=== PATIENT | male | born 1935 | race Caucasian/White ===

== ENCOUNTER 2023-09-12 13:06 | Inpatient (IN) | payer MEDICARE, BC, SELFPAY ==
[2023-09-11 12:02] VITALS: BP 150/88
[2023-09-11 12:23] LABS: % Basophils 0.3 % (0-2); % Eosinophils 3.6 % (0-6); % Immature Granulocytes 0.4 % (0-0.5); % Lymphocytes 26.3 % (20.5-51.1); % Monocytes 7.6 % (1.7-9.3); % Neutrophils 61.8 % (42.2-75.2); Absolute Eosinophils 0.2 10^3/uL (0-0.7); Absolute Lymphocytes 1.8 10^3/uL (1.2-3.4); Absolute Monocytes 0.5 10^3/uL (0.1-0.6); Absolute Neutrophils 4.1 10^3/uL (1.4-6.5); Hematocrit 43.9 % (39.0-52.0); Hemoglobin 15.7 g/dL (13.0-18.0); Mean Corp Hgb Conc. 35.8 g/dL (33.0-37.0); Mean Corpuscular Hgb 33.6 pg (27.0-31.0); Mean Platelet Volume 9.6 fL (7.4-10.4); Nucleated Red Blood Cells % 0 % (-); Platelet Count 150 10^3/uL (130-400); Red Blood Cell Count 4.67 10^6/uL (4.70-6.10); Red Cell Dist. Width 14.5 % (11.5-14.5); White Blood Cell Count 6.7 10^3/uL (4.8-10.8)
[2023-09-11 13:16] LABS: ALT (SGPT) 22 U/L (0-50); AST (SGOT) 24 U/L (17-59); Albumin 4.5 g/dl (3.5-5.0); Alkaline Phosphatase 81 U/L (38-126); Blood Urea Nitrogen 20 mg/dl (9-20); Calcium 9.9 mg/dl (8.4-10.2); Carbon Dioxide 24 mmol/L (22-30); Chloride 104 mmol/L (98-107); Glucose 183 mg/dl (70-99); Potassium 4.1 mmol/L (3.5-5.1); Sodium 138 mmol/L (135-145); Total Bilirubin 0.9 mg/dl (0.2-1.3); Total Protein 7.5 g/dl (6.3-8.2); eGFR > 60.00
[2023-09-11 13:57] LABS: Urine Albumin Negative (Neg - Trace); Urine Bilirubin Negative (Negative); Urine Character Clear (Clear); Urine Color Yellow; Urine Glucose Negative (Negative); Urine Ketone Negative (Negative); Urine Leukocyte Negative (Negative); Urine Nitrite Negative (Negative); Urine Occult Blood Negative (Negative); Urine Urobilinogen Negative (Neg - 1+)
--- NOTE | 2023-09-11 14:09 | ED.GENMED ---
History of Present Illness
General
Chief Complaint: Change in Mental Status
Source: patient
Exam Limitations: none
Time Seen by Provider: 09/11/23 13:03
Nursing documentation reviewed up to this point in time: agreed with
Travel History
Have you had any contact with someone who has COVID-19?: No
Do you have any symptoms of coronavirus? Fever > 100 degrees, chills, cough, shortness of breath, sore throat, loss of taste or smell, muscle aches, or headache?: No
History of Present Illness
History of Present Illness:
87-year-old male with past medical history of atrial fibrillation currently on Xarelto, CHF hypertension hyperlipidemia presenting to the emergency department today with concerns of initially an episode yesterday where he was slumping to his left
side witnessed by the he does not recall this lasted for few minutes and then resolved this morning he seemed to be confused and had slurred speech this started at least 3 hours prior to arrival to the emergency department. She also seem to be
generally weak but no focal weakness. He was much more confused than usual but does have some memory loss issues at baseline however this is significantly off his baseline.
Past History
Past History
ED Past Medical History: Other (Cardiomyopathy, paroxysmal atrial fibrillation anticoagulation, right eye retinal problem,)
Social History
Tobacco: Former smoker
Alcohol: Occasional
Family History
Family History: Other (Atrial fibrillation)
Review of Systems
Review of Systems
Allergies reviewed?: Yes
All Other Systems: ROS reviewed and negative except as documented in HPI and ROS
Phy Exam
Physical Exam
Physical Exam:
GENERAL: Alert , in no apparent distress
EYE: pupils equal and reactive
NECK: Supple, no significant adenopathy.
ENT: o/p clr, mmm.
CARDIAC: Regular rate and rhythm .
LUNGS: Clear breath sounds bilaterally, no acute respiratory distress, no wheezes/rales/rhonchi
ABDOMEN: Soft, without focal tenderness, no r/g, no cvat
NEUROLOGICAL: Patient is alert having difficulty following directions but eventually will follow directions after repeated instruction. Patient was not sure where he was was not sure the date was not sure of his own birthday not know the president.
According to the he normally knows his answers. 5 out of 5 strength of upper and lower extremities bilaterally , normal sensation bilaterally. No pronator drift.
SKIN: Warm and dry, skin intact.
MUSCULOSKELETAL: No edema, well perfused.
PSYCH: Normal and appropriate interaction.
Course
Orders/Labs/Results
Orders:
Orders
09/11/23 12:15
Complete Blood Count/With Diff Urgent
Comprehensive Metabolic Panel Urgent
09/11/23 12:16
CT Head W/o Iv Contrast Urgent
Reason For Exam: confusion
09/11/23 13:09
UA Reflex to Culture [Urinalysis Reflex To Culture] Urgent
Date Specimen was Collected: 09/11/23
Time Specimen was Collected: 12:08
09/11/23 13:51
EKG [Electrocardiogram (*1)] Urgent
Reason for Study: TIA/Stroke
09/11/23 13:52
EKG- Treatment ONCE
09/11/23 14:00
PT/INR [Prothrombin Time] Urgent
PTT Urgent
09/11/23 14:44
EEG Routine Urgent
Reason for Exam: ? Status epilepticus
Abnormal Lab Results
09/11/23 09/11/23
12:15 14:00
RBC 4.67 L 10^6/uL
(4.70-6.10)
MCH 33.6 H pg
(27.0-31.0)
PT 15.5 H Sec
(11.4-14.6)
APTT 35.5 H Sec
(23.4-35.0)
Glucose 183 H mg/dl
(70-99)
09/11/23 12:15
04/22/24 12:15
Vital Signs
Initial and Last Documented VS:
Initial Vital Signs
Temp Pulse Resp BP Pulse Ox
97.6 F 73 16 150/88 96
09/11/23 12:02 09/11/23 12:02 09/11/23 12:02 09/11/23 12:02 09/11/23 12:02
Last Documented Vital Signs
Temp Pulse Resp BP Pulse Ox
97.6 F 73 16 150/88 96
09/11/23 12:02 09/11/23 12:02 09/11/23 12:02 09/11/23 12:02 09/11/23 12:02
MDM/Problems Addressed
MDM/Problems Addressed:
87-year-old male presenting to the emergency department today with concerns of significant worsening of confusion over the past 4 hours as well as slurred speech. Here no additional focal neurologic deficits does seem to be slurring and was unable
to answer any orientation questions. Vital signs otherwise normal here CT scan without emergent findings labs unremarkable urinalysis normal. Plan to admit for further evaluation
*Critical Care Note
Total Time (30-74mins, 75-104mins- exclusive of procedures): Not Applicable
ED Attending Note
-
Portions of this chart may have been created with voice recognition software.� Occasional wrong word or��sound alike� substitutions may have occurred due to the inherent limitations of voice recognition software.
Discharge Plan
Departure
Patient Disposition: Admit
Date of Disposition: 09/11/23
Time of Disposition: 14:16
Admit to: Telemetry
Admit to doctor: Tariq
Presentation/result/management discussed w/ accepting MD/DO: Hospitalist
Patient with high blood pressure during this ER visit?: No
Condition: Good
Covid-19: Not Applicable
Discharge Problem:
Acute confusion, Slurred speech
Prescriptions:
No Action
multivitamin Tablet
1 tab PO DAILY
furosemide [Lasix] 40 mg Tablet
20 mg PO DAILY
amlodipine 5 mg Tablet
5 mg PO DAILY@0100
famotidine 20 mg Tablet
20 mg PO DAILY@0100
ascorbic acid (vitamin C) [Vitamin C] 500 mg Tablet
500 mg PO DAILY
tamsulosin 0.4 mg Capsule
0.4 mg PO QPM
ferrous sulfate [iron] 325 mg (65 mg iron) Tablet
325 mg PO DAILYPRN PRN (Reason: supplement)
melatonin 5 mg Tablet
5 mg PO DAILY@0100
L.acidophilus-Bifido.longum [Probiotic Pearls] 15 mg (1 billion cell) Capsule,Delayed Release(Dr/Ec)
1 cap PO DAILY@0100
Entresto 97-103 mg Tablet
1 tab PO DAILY@0100
Gemtesa 75 mg Tablet
75 mg PO DAILY
Prevagen
1 tab PO DAILY
Super Q10
100 mg PO DAILY
docosahexaenoic acid-epa
1 tab PO DAILY
Patient Comments:
09/11/2023, 2500 mg, 900 mg EPA, 600 mg DHA.
Neuropathy Vitamin
1 tab PO DAILY
carvedilol 6.25 mg tablet
6.25 mg PO BID
Xarelto 20 mg tablet
20 mg PO QPM
latanoprost 0.005 % Drops
1 drp RIGHT EYE HS
Visine 0.05 % Drops
1 drp BOTH EYES DAILYPRN PRN (Reason: dry eyes)
acetaminophen [Tylenol Arthritis] 650 mg Tablet Extended Release
650 mg PO TID
Lucentis 0.5 mg/0.05 mL Syringe
0 mg INTRAVITREAL Q10W
Patient Comments:
09/11/2023, pt. due for next dose tomorrow (09/12/2023) per spouse.
Entresto 49-51 mg Tablet
1 tab PO DAILY
Referrals:
Lino,Roosevelt E., MD [Family Provider] -
Interventions
Interventions:
*Risk Screen - Suicide Last Done: 09/11/23 12:03
*General Assessment Last Done: 09/11/23 12:03
*Neglect/Abuse Screening Last Done: 09/11/23 12:03
ED- Fall Risk Assessment Last Done: 09/11/23 14:35
ED- Neurological Assessment Last Done: 09/11/23 14:35
ED- Cardiac Assessment Last Done: 09/11/23 14:35
ED Swallowing Screen Last Done: 09/11/23 14:39
Discharge Date and Time
Print Language: PERSIAN
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
[2023-09-11 14:19] LABS: INR 1.24; PT 15.5 Sec (11.4-14.6)
[2023-09-11 14:20] LABS: APTT 35.5 Sec (23.4-35.0)
--- NOTE | 2023-09-11 14:50 | HPS.HSE ---
Addendum entered and electronically signed by Edilia Rios MD 09/11/23 15:42:
Patient seen and examined independently--agree with PA note
GENERAL: well developed, well nourished, male in no apparent distress
HEENT: NC/AT
HEART: irreg irreg
LUNGS : clear to auscultation bilaterally
ABDOM: soft, nontender, nondistended, + bowel sounds
EXT: no cyanosis, clubbing-- 2+ edema bilateral LE--redness of right forearm with tracking up on upper arm
NEUROLOGIC: confused--cannot answer questions
Expressive/Receptive Aphasia with worsening confusion--suspect CVA--OBS until stroke proven--consult neuro, MRI/MRA/PT/OT/Speech/check lipid panel--just had recent echo, no need to repeat--add asa--work up for infection--blood and urine cultures--pt
appears to have cellulitis of right arm--unclear if any contribution--cont ancef
Chronic HFpEF--does not appear to be in an acute exacerbation although does have edema bilaterally (Echo Apr 2023: EF 50-55%)--Continue Entresto--Continue Lasix--Monitor Is&OS and Daily Weights
Permanent Atrial Fibrillation--Hold Xarelto--Continue Coreg for rate control
Essential Hypertension--Continue Amlodipine and Coreg with parameters
Hyperlipidemia--Check Lipid Panel--Add Zetia as patient is intolerant to statins
Diabetes Mellitus, Type II--Patient not currently on meds--Check [id number]--rhc SSI coverage
BPH--Continue Flomax
Hx Aortic Stenosis s/p TAVR
Hx Bladder Cancer s/p BCG
DVT proph: SCDs
Code Status: Full Code
Original Note:
Family Physician
-
Family Physician: Roosevelt Huynh
Chief Complaint
-
Confusion / Slurred Speech
History of Present Illness
Patient is an 87 y/o male with a past medical history of diabetes mellitus, hyperlipidemia, hypertension, permanent atrial fibrillation, cardiomyopathy, heart failure, aortic stenosis (status post transcatheter aortic valve replacement), obstructive
sleep apnea, bilateral lower extremity neuropathy, depression, history of bladder and prostate cancer, and chronic cognitive impairment who presents for a short episode of slumping to his left side yesterday and some confusion with slurred speech 3
hours prior to arrival in the emergency department. Patient is a poor historian due to change in mental status. His reports that yesterday's episode of slumping to the side was short in duration but he was noted to have more confusion than
baseline today. While in the room, patient has trouble following commands and frequently substitutes incorrect words during speech.
Medical History
Past Medical History
Past Medical History: Reports Other
Additional Past Medical History:
Chronic HFpEF
Aortic Stenosis s/p TAVR
Permanent Atrial Fibrillation
Essential Hypertension
Hyperlipidemia
Diabetes Mellitus, Type II
Overactive Bladder
BPH
Bladder Cancer s/p BCG
Past Surgical History: Reports Other
Additional Past Surgical History:
TAVR
Bowel Resection with Colostomy with Reversal
TURBT
Spine Surgery
Social History
Tobacco: Non-smoker
Alcohol: Daily (1-2 glasses of wine nightly)
Family History
Family History: Unable to Obtain
Allergies / Home Medications
Allergies reflects when Allergies were last updated in [facility].
Home Medications with original date entered in [facility]
Allergy/Medication List:
Allergies
Allergy/AdvReac Type Severity Reaction Status Date / Time
simvastatin [From Zocor] Allergy Mild Unknown Verified 03/03/23 11:42
atorvastatin [From Lipitor] Allergy muscle Verified 03/03/23 11:42
weakness
rosuvastatin Allergy Unknown Verified 03/03/23 11:42
Sulfa (Sulfonamide Allergy Rash Verified 03/03/23 11:42
Antibiotics)
Home Medications
L.acidophilus-bif.longum 15 mg (1 billion cell)capsule,delayed release (Probiotic Pearls) 1 cap PO DAILY@0100 Gastrointestinal issue 04/06/22
Prevagen 1 tab PO DAILY Supplement 04/06/22
Super Q10 100 mg PO DAILY Supplement 04/06/22
amlodipine 5 mg tablet 5 mg PO DAILY@0100 Blood pressure 04/06/22
ascorbic acid (vitamin C) 500 mg tablet (Vitamin C) 500 mg PO DAILY Supplement 04/06/22
famotidine 20 mg tablet 20 mg PO DAILY@0100 Gastrointestinal issue 04/06/22
ferrous sulfate 325 mg (65 mg iron) tablet (iron) 325 mg PO DAILYPRN PRN supplement 04/06/22
furosemide 40 mg tablet (Lasix) 20 mg PO DAILY Fluid retention/Swelling 04/06/22
melatonin 5 mg tablet 5 mg PO DAILY@0100 04/06/22
multivitamin 1 tab PO DAILY Supplement 04/06/22
sacubitril 97 mg-valsartan 103 mg tablet (Entresto) 1 tab PO DAILY@0100 Heart Failure 04/06/22
tamsulosin 0.4 mg capsule 0.4 mg PO QPM Urinary Issue 04/06/22
vibegron 75 mg tablet (Gemtesa) 75 mg PO DAILY Overactive bladder 04/06/22
docosahexaenoic acid-epa 1 tab PO DAILY Heart disease/condition 05/09/22
Neuropathy Vitamin 1 tab PO DAILY Supplement 03/03/23
carvedilol 6.25 mg tablet 6.25 mg PO BID Heart Failure 03/03/23
rivaroxaban 20 mg tablet (Xarelto) 20 mg PO QPM Blood Clot Prevention/Tx 03/03/23
acetaminophen 650 mg tablet,extended release 650 mg PO TID 09/11/23
latanoprost 0.005 % eye drops 1 drp RIGHT EYE HS 09/11/23
ranibizumab 0.5 mg/0.05 mL intravitreal syringe (Lucentis) 0 mg intravitreal Q10W 09/11/23
sacubitril 49 mg-valsartan 51 mg tablet (Entresto) 1 tab PO DAILY 09/11/23
tetrahydrozoline 0.05 % eye drops (Visine) 1 drp BOTH EYES DAILYPRN PRN dry eyes 09/11/23
Review of Systems
-
Unable to obtain full review of systems at this time due to: Dementia
Physical Exam
Vital Signs
Vital Signs
Temp Pulse Resp BP Pulse Ox
97.6 F 73 16 150/88 96
09/11/23 12:02 09/11/23 12:02 09/11/23 12:02 09/11/23 12:02 09/11/23 12:02
Physical Exam
General: Comfortable and Conversant
HEENT: Anicteric and Moist mucous membranes
Respiratory: Clear and Non Labored Respirations
Cardiac: S1/S2 and Irregular Rhythm; No Murmur
GI: Soft and Non Tender
Rectal: Deferred by Provider
Musculoskeletal: No Clubbing, No Cyanosis and Other (+1 edema )
Skin: Warm, Dry and Other (Mild erythema with slight increased warmth to touch right upper extremity)
Neuro: Awake, Alert and Other (Appears to move all four extremities appropriately; Doesn't follow all commands therefore difficult to perform full neurologic evaluation; Speech is clear with frequent wrong words)
Psych: Confused and Apparent Dementia
Laboratory Results
-
09/11/23 12:15
09/11/23 12:15
Laboratory Results
PT 15.5 Sec (11.4-14.6) H 09/11/23 14:00
INR 1.24 09/11/23 14:00
APTT 35.5 Sec (23.4-35.0) H 09/11/23 14:00
Total Bilirubin 0.9 mg/dl (0.2-1.3) 09/11/23 12:15
AST 24 U/L (17-59) 09/11/23 12:15
ALT 22 U/L (0-50) 09/11/23 12:15
Alkaline Phosphatase 81 U/L (38-126) 09/11/23 12:15
Data Reviewed
-
Lab Data: Labs Reviewed by me
Impression/Plan
-
Expressive / Receptive Aphasia
-Consult Neurology
-Check Brain MRI with Head/Neck MRA
-Add aspirin
Right Upper Ext Cellulitis
-Add empiric Ancef
Chronic HFpEF
-Echo Apr 2023: EF 50-55%
-Continue Entresto
-Continue Lasix
-Monitor Is&OS and Daily Weights
Permanent Atrial Fibrillation
-Hold Xarelto
-Continue Coreg for rate control
Essential Hypertension
-Continue Amlodipine and Coreg
Hyperlipidemia
-Check Lipid Panel
-Add Zetia as patient is intolerant to statins
Diabetes Mellitus, Type II
-Patient not currently on meds
-Check HgbA1c
BPH
-Continue Flomax
Hx Aortic Stenosis s/p TAVR
Hx Bladder Cancer s/p BCG
DVT proph: SCDs
Code Status: Full Code
[2023-09-11 15:00] VITALS: BMI 33.7
--- NOTE | 2023-09-11 15:46 | EEG.RPT ---
Addendum entered and electronically signed by Brendon Velazquez MD 09/11/23 15:51:
Duration of study 29 minutes.
Original Note:
Electroencephalogram Report
Recording
Date of EE09/11/23
Type of EEG: Routine
Done with Video Recording: Yes
Patient Status: Inpatient
Recording Conditions: Awake and Drowsy
Hyperventilation Performed: No
Photic Stimulation Performed: Yes
Hand Dominance: Right
Report
LESS THAN 1 HOUR EEG INTERPRETATION:
Mildly abnormal EEG with some focal left temporal slowing implying dysfunction in this area. Not specific as to etiology. No seizures or interictal epileptiform discharges seen.
CLINICAL CORRELATION:
Subtle left temporal lobe slowing at T5 may be due to structural lesion in this area, not specific as to etiology but can be caused by ischemic stroke to the area. No seizures or interictal epileptiform discharges seen.
Clinical correlation is advised.
METHODS:
A 21 channel digitized electroencephalogram (EEG) was performed using the 10/20 international system of electrode placement and one-lead of ECG recorded.
ELECTROENCEPHALOGRAPHER IMPRESSION(S):
Quality of study
Good
Background
In the awake state there is mixed medium amplitude background of predominantly theta and alpha frequencies.
Normal posterior dominant rhythm of 8 to 9 Hz is seen which attenuates with eye opening.
Very subtle T5 focal slowing is seen on the left hemisphere
Sleep
Drowsiness present
Photic Stimulation
No activation
ECG
Normal sinus rhythm
[2023-09-11 16:03] LABS: Total Cholesterol 195 mg/dl (50-199); Triglyceride 165 mg/dl (10-149); Very Low Density Lipoprotein 33 mg/dl (0-30)
[2023-09-11 16:04] LABS: HDL Cholesterol 39 mg/dl; LDL Cholesterol, Calculated 123 mg/dl
[2023-09-11 16:46] LABS: TSH Reflex To Free T4 1.81 uIU/ml (0.47-4.68)
[2023-09-11 16:50] LABS: Ferritin 86.2 ng/ml (17.9-464.0)
[2023-09-11 17:00] VITALS: BP 146/95; BMI 33.3
[2023-09-11 17:19] LABS: Glucose - Point of Care 123 mg/dl (70-99)
[2023-09-11] MEDS: NOVOLOG FLEXPEN-LOW RESISTANCE SC (17:20)
[2023-09-11 17:21] LABS: Folate > 20.0 ng/ml (2.76-20); Vitamin B12 755 pg/ml (239-931)
[2023-09-11 18:04] VITALS: BMI 32.4
[2023-09-11] MEDS: ANCEF 10 IV (18:09)
[2023-09-11] MEDS: FLOMAX PO (18:42)
[2023-09-11 19:00] VITALS: BP 161/99
--- NOTE | 2023-09-11 19:43 | PTCARENOTE ---
1715 Received patient from ED AAOx1-2. [facility]
--- NOTE | 2023-09-11 19:44 | PTCARENOTE ---
1715 Received patient from ED AAOx2. [facility]-4. Pt oriented to room. Bed alarm in place. Made patient comfortable. 1914 Swallowing test re done. Pt passed swallowing eval. Made paitent comfortable. Cont to assess patient status.
[2023-09-11] MEDS: ZETIA 10 MG PO (20:02)
[2023-09-11] MEDS: COREG 6.25 MG PO (20:02)
[2023-09-11 22:02] LABS: Glucose - Point of Care 130 mg/dl (70-99)
[2023-09-11 23:55] VITALS: BP 159/60
[2023-09-12 01:15] VITALS: BP 153/92
[2023-09-12] MEDS: ANCEF 10 IV ×3 (01:28→17:54)
[2023-09-12] MEDS: PEPCID 20 MG PO (01:28)
[2023-09-12] MEDS: ENTRESTO 97 MG/103 MG 1 TAB PO (01:28)
[2023-09-12] MEDS: NORVASC 5 MG PO (01:28)
[2023-09-12 06:00] VITALS: BMI 32.4
[2023-09-12 07:04] LABS: HDL Cholesterol 37 mg/dl; LDL Cholesterol, Calculated 124 mg/dl; Total Cholesterol 192 mg/dl (50-199); Triglyceride 158 mg/dl (10-149); Very Low Density Lipoprotein 31 mg/dl (0-30)
[2023-09-12 07:45] LABS: TSH Reflex To Free T4 1.53 uIU/ml (0.47-4.68)
--- NOTE | 2023-09-12 08:00 | W.PN.NEURO.1 ---
Addendum entered and electronically signed by Brendon Velazquez MD 09/12/23 12:47:
I saw and evaluate the patient I reviewed the note by Darcy Garber agree with the findings the following comments:
87-year-old male with a past medical history of peripheral neuropathy CHF, hypertension, obstructive sleep apnea and atrial fibrillation on Xarelto presented to hospital with speech abnormality and confusion and upon evaluation yesterday had a
Wernicke's/fluent aphasia seen in the ED.
No acute overnight events and the patient's language does seem to be improving although not normalized, denies any headache or weakness or new complaints.
MRI brain shows infarcts in the left MCA territory notably the left temporal frontal and parietal lobes all within the left MCA territory, no infarcts appreciated on the right.
No significant intracranial stenosis or occlusion, some motion artifact at the left cervical internal carotid artery but appears less than 50% stenosis.
Assessment: New ischemic stroke causing Wernicke's aphasia which is improving likely. Ischemic stroke territory is all within the left MCA territory. Etiology could be cardioembolic given history of atrial fibrillation versus atheroembolic from
the aorta or from a nonhemodynamically significant plaque in the left carotid artery. Modifiable risk factors include high LDL patient not able to tolerate statins, type 2 diabetes, obstructive sleep apnea and age.
Given the infarct is in the left MCA territory only in the territory of the left carotid artery would take a closer look at the carotid artery with ultrasound. Stroke can still occur from a nonhemodynamically significant stenosis from carotid
plaque. Fair chance that the stroke is from atheroembolic etiology rather than cardioembolic stroke occurring despite Xarelto use.
Recommendations
-Check carotid ultrasound
-Continue to hold Xarelto
-Continue asprin
-Added Zetia for improving LDL he has been unable to tolerate several statins, would pursue consideration for Repatha in the outpatient setting with cardiology
-Speech therapy
-Counseled on recovery from stroke, expect some language deficits and aphasia but he is showing improvement already which is a good sign
-Goal normotension
-NIH and Neurologic checks
Original Note:
Documented by User: Darcy Carrera NP 09/12/23 11:40
Today's Communication / Plan
-
.
Neuro Assessment/Plan
Assessment
This is an 87-year-old male with a PMH of Afib (Xarelto), HTN, CHF, peripheral neuropathy, YENNY (cpap), previous bladder and prostate cancer who presented to on 09/11/23 with report of confusion, speech abnormality, and a starring spell
precipitating these changes on 09/10/23. He was not a candidate for TNK/IAT due to Xarelto in the last 24 hours and outside of time window.
-MRI brain 09/12/23: There are multiple scattered small foci of acute to subacute infarction in the left hemisphere, in the distribution of the left MCA, as described above. In the right paramedian parietal lobe, there is also a 2 mm punctate focus
of acute to subacute infarction. Moderate diffuse atrophy. Moderate leukomalacia, predominantly periventricular.
-EEG 09/11/23: Subtle left temporal lobe slowing at T5 may be due to structural lesion in this area, not specific as to etiology but can be caused by ischemic stroke to the area. No seizures or interictal epileptiform discharges seen.
I. Acute to subacute scattered ischemic infarcts throughout the L MCA territory in addition to a right parietal lobe punctate infarct. Etiology likely embolic.
II. Likely mild cognitive impairment vs mild dementia at baseline.
Plan
-MRA head/neck pending.
-Hold Xarelto. Continue aspirin 81mg daily for now.
-Goal normotension.
-LDL goal <70. LDL is 124. Patient is intolerant to statins, Zetia 10mg daily initiated.
-Goal normoglycemia, hbA1c is 6.5.
-NIHSS and neurological checks per unit guidelines.
-Provide patient/family with a stroke education packet.
-PT/OT/ST evaluations.
-DVT prophylaxis.
-Will follow.
Subjective/Objective
Subjective Data
Date of Service: September 12, 2023
No acute events overnight. Patient endorses feeling confused but improved from yesterday. He denies any headache, dizziness, vision changes, speech/swallow difficulty, numbness, nausea, weakness, chest pain, palpitations, and shortness of breath.
Objective Data
Vital Signs
Temp Pulse Resp BP Pulse Ox
97.8 F 81 18 161/97 96
09/11/23 23:55 09/12/23 01:28 09/11/23 23:55 09/12/23 01:28 09/11/23 23:55
Lab Results
09/11/23 12:15
09/11/23 12:15
PT 15.5 Sec (11.4-14.6) H 09/11/23 14:00
INR 1.24 09/11/23 14:00
APTT 35.5 Sec (23.4-35.0) H 09/11/23 14:00
Sodium 138 mmol/L (135-145) 09/11/23 12:15
Potassium 4.1 mmol/L (3.5-5.1) 09/11/23 12:15
BUN 20 mg/dl (9-20) 09/11/23 12:15
Glucose 183 mg/dl (70-99) H 09/11/23 12:15
Calcium 9.9 mg/dl (8.4-10.2) 09/11/23 12:15
LDL Cholesterol, Calc 124 mg/dl 09/12/23 06:00
Vitamin B12 755 pg/ml (239-931) 09/11/23 12:15
Patient Allergies
atorvastatin [From Lipitor] Allergy (Verified 03/03/23 11:42)
muscle weakness
rosuvastatin Allergy (Verified 09/11/23 16:49)
muscle cramps
simvastatin [From Zocor] Allergy (Verified 09/11/23 16:49)
leg cramps
Sulfa (Sulfonamide Antibiotics) Allergy (Verified 03/03/23 11:42)
Rash
LDL Level: >70, statin contraindicated (statin intolerant, zetia ordered)
Review of Systems
-
History Source: Patient
EENT: Negative Blurry Vision, Decreased Vision or Swallowing Difficulty
Respiratory: Negative Cough or Trouble Breathing
Cardiac: Negative Chest Pain or Palpitations
Abdomen/GI: Negative Nausea
Neuro: Negative Dizzy, Headache, Weakness, Numbness, Ataxia or Speech Problem
Physical Exam
-
General: No Apparent Distress
Eyes: No Ptosis and PERRLA
HEENT: Normocephalic and Atraumatic
Neck: Full Range of Motion
Respiratory: No Dyspnea
GI: Non-distended
Extremities: No Clubbing, No Cyanosis and No Edema
Psych: Confused; Negative Intact Judgement/Insight
Extended Neurological Exam
Mood & Affect: Anxious
Attention Span & Concentration: Awake, Alert, Interactive and Mild Difficulty with 2 Step Request
Memory: Reduced (Oriented to self and place, not month/year/situation)
Tremor: Hand Tremor Absent and Head Tremor Absent
Involuntary Movement: None
Speech: Quality Unremarkable and Receptive Aphasia
Cranial Nerve II: Left Eye: Pupillary Reactivity Unremarkable, Pupillary Size Unremarkable and Visual Santillan Intact
Cranial Nerve II: Right Eye: Pupillary Reactivity Unremarkable, Pupillary Size Unremarkable and Visual Santillan Intact
Cranial Nerves III, IV, : Extraocular Movement: Extraocular Movement Full in all Directions
Cranial Nerve VII: Facial Symmetry: Normal Facial Symmetry
Cranial Nerve VIII: Hearing: Grossly Reduced (wearing hearing aids)
Cranial Nerves IX, X: Palate Movement: Palate Elevation Symmetric
Cranial Nerve XI: Shoulder Shrug: Unremarkable
Cranial Nerve XII: Tongue Protusion: Midline
Muscle Strength, Overall: Full Throughout
Muscle Bulk & Tone: Bulk Unremarkable and Tone Unremarkable
Pronator Drift: No Drift in Upper Extremities and No Drift in Lower Extremities
Touch Sensation: Double Simultaneous Stimulation Unremarkable
Coordination: Fyttel-hdar-elrukw Testing Unremarkable
Babinski Sign: Absent Bilaterally
Modified [place] Score (MRS)
-
Modified Joselito Scale (mRS): Moderate disability. Requires some help, able to walk unassisted.
Score: 3
Data Reviewed
-
CT Head: Report Reviewed and Image Reviewed
MRI Head: Report Reviewed and Image Reviewed
MRA Head: Pending
MRA Neck: Pending
EEG: Report Reviewed
Labs: Report Reviewed
Lipid Profile: Report Reviewed
HgbA1C: Report Reviewed
Reviewed with: Physician and Patient
Medications
-
Active Medications
Generic Name Dose Route Start Last Admin
Trade Name Freq PRN Reason Stop Dose Admin
Acetaminophen 650 mg 09/11/23 16:47
Acetaminophen 325 Mg Tablet PO 10/09/23 16:46
Q4HPRN PRN
mild pain/ fever>100.5F
Amlodipine Besylate 5 mg 09/12/23 01:00 09/12/23 01:28
Amlodipine 5 Mg Tablet PO 10/10/23 00:59 5 mg
DAILY@0100 MITCH Administration
Aspirin 81 mg 09/12/23 08:00
Aspirin 81 Mg (Enteric Coated) Tablet PO 10/10/23 07:59
DAILY MITCH
Carvedilol 6.25 mg 09/11/23 20:00 09/11/23 20:02
Carvedilol 6.25 Mg Tablet PO 10/09/23 19:59 6.25 mg
BID MITCH Administration
Dextrose 12.5 grams 09/11/23 16:47
Dextrose 50% (0.5 Grams/Ml) 50 Ml Syringe IV 10/09/23 16:46
[id number] PRN
hypoglycemia
Protocol
Ezetimibe 10 mg 09/11/23 22:00 09/11/23 20:02
Ezetimibe (Zetia) 10 Mg Tablet PO 10/09/23 21:59 10 mg
HS MITCH Administration
Famotidine 20 mg 09/12/23 01:00 09/12/23 01:28
Famotidine 20 Mg Tablet PO 10/10/23 00:59 20 mg
DAILY@0100 MITCH Administration
Furosemide 20 mg 09/12/23 08:00
Furosemide 20 Mg Tablet PO 10/10/23 07:59
DAILY MITCH
Glucagon 1 mg 09/11/23 16:47
Glucagon 1 Mg Vial IM 10/09/23 16:46
PRN PRN
hypoglycemia
Protocol
Cefazolin Sodium 2 grams in 10 mls @ 120 mls/hr 09/11/23 18:00 09/12/23 01:28
Ancef IV 10 mls
Q8H MITCH Administration
Insulin Aspart 0 units 09/11/23 16:47 09/11/23 17:20
Insulin Aspart Low Resistance 300 Units/3 Ml Pen.Injctr SC 10/09/23 16:46 Not Given
AC MITCH
Protocol
Sacubitril/Valsartan 1 tab 09/12/23 08:00
Sacubitril 49 Mg/Valsartan 51 Mg (Entresto) Tab PO 10/10/23 07:59
DAILY MITCH
Sacubitril/Valsartan 1 tab 09/12/23 01:00 09/12/23 01:28
Sacubitril 97 Mg/Valsartan 103 Mg (Entresto) Tab PO 10/10/23 00:59 1 tab
DAILY@0100 MITCH Administration
Sodium Chloride 0 flush 09/11/23 17:00
Sodium Chloride 0.9% (Flush) Syringe IV 10/09/23 16:59
PER PROTOCOL MITCH
Tamsulosin HCl 0.4 mg 09/11/23 18:00 09/11/23 18:42
Tamsulosin 0.4 Mg Capsule PO 10/09/23 17:59 Not Given
QPM MITCH
Tolterodine Tartrate 4 mg 09/12/23 08:00
Tolterodine 4 Mg Extended Release Capsule PO 10/10/23 07:59
DAILY MITCH
Home Medications
�Medication �Instructions �Recorded
L.acidophilus-bif.longum 15 mg (1 1 cap PO DAILY@9904/06/22
billion cell)capsule,delayed Gastrointestinal issue
release (Probiotic Pearls)
Prevagen 1 tab PO DAILY Supplement 04/06/22
Super Q10 100 mg PO DAILY Supplement 04/06/22
amlodipine 5 mg tablet 5 mg PO DAILY@010 Blood pressure 04/06/22
ascorbic acid (vitamin C) 500 mg 500 mg PO DAILY Supplement 04/06/22
tablet (Vitamin C)
famotidine 20 mg tablet 20 mg PO DAILY@9904/06/22
Gastrointestinal issue
ferrous sulfate 325 mg (65 mg 325 mg PO DAILYPRN PRN supplement 04/06/22
iron) tablet (iron)
furosemide 40 mg tablet (Lasix) 20 mg PO DAILY Fluid 04/06/22
retention/Swelling
melatonin 5 mg tablet 5 mg PO DAILY@9904/06/22
multivitamin 1 tab PO DAILY Supplement 04/06/22
sacubitril 97 mg-valsartan 103 mg 1 tab PO DAILY@010 Heart Failure 04/06/22
tablet (Entresto)
tamsulosin 0.4 mg capsule 0.4 mg PO QPM Urinary Issue 04/06/22
vibegron 75 mg tablet (Gemtesa) 75 mg PO DAILY Overactive bladder 04/06/22
docosahexaenoic acid-epa 1 tab PO DAILY Heart 05/09/22
disease/condition
Neuropathy Vitamin 1 tab PO DAILY Supplement 03/03/23
carvedilol 6.25 mg tablet 6.25 mg PO BID Heart Failure 03/03/23
rivaroxaban 20 mg tablet (Xarelto) 20 mg PO QPM Blood Clot 03/03/23
Prevention/Tx
acetaminophen 650 mg 650 mg PO TID 09/11/23
tablet,extended release
latanoprost 0.005 % eye drops 1 drp RIGHT EYE HS 09/11/23
ranibizumab 0.5 mg/0.05 mL 0 mg intravitreal Q10W 09/11/23
intravitreal syringe (Lucentis)
sacubitril 49 mg-valsartan 51 mg 1 tab PO DAILY 09/11/23
tablet (Entresto)
tetrahydrozoline 0.05 % eye drops 1 drp BOTH EYES DAILYPRN PRN dry 09/11/23
(Visine) eyes
NIH Stroke Score
Subsequent NIH Scale
Date of Subsequent NIH Scale: 09/12/23
Time of Subsequent NIH Scale: 09:30
NIH Stroke Score
Level of Consciousness: 0 - Alert
LOC Questions: 2-Neither correct
LOC Commands: 0-Performs both correctly
Best Horizontal Gaze: 0-Normal
Visual Santillan: 0=Normal, no visual loss
Facial Palsy: 0=Normal, symmetrical
Motor - Right Arm: 0=No drift 10 seconds
Motor - Left Arm: 0=No drift 10 seconds
Motor - Right Le-No drift 5 seconds
Motor - Left Le-No drift 5 seconds
Limb Ataxia: 0-Absent
Sensation: 0-Normal
Best Language: 1-Mild aphasia
Dysarthria: 0-Normal
Extinction and Inattention: 0-No abnormality
Total Score:: 3
Modified Joselito (mRS) Score
Modified [place] Scale (mRS): Moderate disability. Requires some help, able to walk unassisted.
Score: 3

Documented by User: Brendon Velazquez MD 09/12/23 12:42
Modified Joselito Score (MRS)
-
Score: 3
NIH Stroke Score
NIH Stroke Score
Total Score:: 3
Modified Joselito (mRS) Score
Score: 3
[2023-09-12 08:04] LABS: Vitamin B12 806 pg/ml (239-931)
[2023-09-12 08:17] LABS: Glucose - Point of Care 122 mg/dl (70-99)
[2023-09-12 08:21] VITALS: BP 155/95
[2023-09-12 08:32] LABS: Glycohemoglobin (HgbA1c) 6.5 % (4.0-5.6)
[2023-09-12] MEDS: ASPIR LOW (ENTERIC COATED) 81 MG PO (09:20)
[2023-09-12] MEDS: LASIX 20 MG PO (09:20)
[2023-09-12] MEDS: NOVOLOG FLEXPEN-LOW RESISTANCE SC ×3 (09:20→17:54)
[2023-09-12] MEDS: ENTRESTO 49 MG/51 MG 1 TAB PO (09:21)
[2023-09-12] MEDS: DETROL LA 4 MG PO (09:21)
[2023-09-12] MEDS: COREG 6.25 MG PO ×2 (09:21→20:53)
[2023-09-12] MEDS: FLUSH (NSS) 2 FLUSH IV ×2 (09:22→17:54)
[2023-09-12 10:02] VITALS: BMI 32.4
--- NOTE | 2023-09-12 10:15 | PTOTSP ---
ST Evaluation
Oropharyngeal function appears intact at the bedside. Cog-linguistic deficits; memory impairment ?baseline pending MRI
Pt received awake/alert sitting upright in bed with AM Meal of regular solids/thin liquids. Self fed regular solids demo grossly functional mastication and bolus was orally cleared. Thin liquids by cup and straw sip swallow appears timely. No overt
s/sx of aspiration observed.
Recommend
1. Continue regular solids/thin liquids
2. Standard aspiration precautions and tray set up as needed
3. Meds per pt preference and RN discretion
4. BAND SAW MARKER following; further cog-linguistic testing pending MRI
[2023-09-12 11:56] VITALS: BP 152/98
[2023-09-12 12:28] LABS: Glucose - Point of Care 195 mg/dl (70-99)
--- NOTE | 2023-09-12 13:02 | W.PN.HOSP.TC ---
Today's Communication/Plan
-
echo
carotid US
PT/OT
d/c planning--likely will need SNF
Assessment / Plan
Assessment / Plan
pt is an 87 year old male
acute CVA with Expressive/Receptive Aphasia with worsening confusion--apprec neuro, MRI with infarcts in the left MCA territory notably the left temporal frontal and parietal lobes all within the left MCA territory, no infarcts appreciated on the
right--MRA COW within normal limits--await PT/OT--add asa--now with acute CVA, will repeat echo--pt appears to have cellulitis of right arm---cont ancef
Chronic HFpEF--does not appear to be in an acute exacerbation although does have edema bilaterally (Echo Apr 2023: EF 50-55%)--Continue Entresto--Continue Lasix--Monitor Is&OS and Daily Weights
Permanent Atrial Fibrillation--Hold Xarelto--Continue Coreg for rate control
Essential Hypertension--Continue Amlodipine and Coreg with parameters
Hyperlipidemia--Check Lipid Panel--Add Zetia as patient is intolerant to statins
Diabetes Mellitus, Type II--Patient not currently on meds--Check MewS2s--vwv SSI coverage
BPH--Continue Flomax
Hx Aortic Stenosis s/p TAVR
Hx Bladder Cancer s/p BCG
DVT proph: SCDs
Code Status: Full Code
Anticipated Discharge: 24 - 48 hours
Subjective/Interval History
-
Date of Service: September 12, 2023
pt wants to go home, can't remember having the MRIs this AM--nursing reports very unsteady on his feet
Objective Data
-
Vital Signs:
max temp for 24 hours
09/11/23
19:00
Temp 98.1 F
Vital Signs
Temp Pulse Resp BP Pulse Ox
98.1 F 82 18 152/98 100
09/12/23 11:56 09/12/23 11:56 09/12/23 11:56 09/12/23 11:56 09/12/23 11:56
I&O
09/11/23 09/12/23 09/13/23
06:59 06:59 06:59
Output Total 1200 / 1200 150 / 150
Balance -1200 / -1200 -150 / -150
Review of Systems
-
All other systems: Reviewed and negative
Physical Exam
-
General: Well Developed, Well Nourished and No Apparent Distress
HEENT: Normocephalic and Atraumatic
Respiratory: Clear to Auscultation; Negative Wheezes or Rhonchi
Cardiac: Irregular Rhythm
GI: Soft, Nontender, Nondistended and Normal Bowel Sounds
Musculoskeletal: No Clubbing, No Cyanosis and No Edema
Skin: Other (redness to right arm improved)
Neuro: Awake
[2023-09-12 16:11] VITALS: BP 156/98
--- NOTE | 2023-09-12 16:18 | CM ---
Patient seen bedside.
IA completed with patient and spouse.
Patient TE-MOAK.
patient lives with spouse in a 2 story home with 2 steps to enter thru the garage.
patient has a stair glide to the second floor.
patient ambulates with a RW.
patient does not drive.
Independent prior to admission.
Patient has had [facility] in the past, may be [facility].
Has not been in skilled rehab in the past.
Patient off the floor for testing today, MRI and US.
PT/OT evals pending.
Explained to spouse after evals are completed and CM receives their recommendations for Acute Rehab, Skilled rehab or HC, CM would reach out to get options for post hospital stay.
PCP: Dr Huynh
Pharmacy: [facility].
Plan: TBD based on PT/OT recommendations.
[2023-09-12 16:54] LABS: Glucose - Point of Care 125 mg/dl (70-99)
[2023-09-12] MEDS: FLOMAX 0.400000000000000022 MG PO (17:55)
[2023-09-12 19:00] VITALS: BP 151/87
[2023-09-12] MEDS: ZETIA 10 MG PO (20:53)
[2023-09-12] MEDS: XALATAN OPHTHALMIC SOLUTION 1 DROP RIGHT EYE (20:53)
[2023-09-12 21:32] LABS: Glucose - Point of Care 153 mg/dl (70-99)
[2023-09-12 23:39] VITALS: BP 124/80
[2023-09-13] VITALS (9 sets, daily range): BP systolic 124–172; BP diastolic 76–108; PULSE 72–121; O2SAT 98; BMI 32.4
[2023-09-13] MEDS: ENTRESTO 97 MG/103 MG PO (01:00)
[2023-09-13] MEDS: NORVASC PO (01:00)
[2023-09-13] MEDS: PEPCID PO (01:00)
[2023-09-13] MEDS: ANCEF IV (01:00)
--- NOTE | 2023-09-13 05:08 | PTCARENOTE ---
Pt aaox2 confused. Pt on bed alarm. Pt trying to get up without help,when trying to help pt get angry on staff to leave him alone. NIH-4.PRINT BINDING AND FINISHING WORKER educational sign language interpreter made aware of pt behavior & confusion, refusing 1am medications. CHRISTIAN EDUCATION DIRECTOR spoke to pt at this time. Pt
wants to sleep. Pt was provided with all emotional & psychological support.Plan of care continued as ordered.
[2023-09-13 07:43] LABS: Hematocrit 45.8 % (39.0-52.0); Hemoglobin 16.6 g/dL (13.0-18.0); Mean Corp Hgb Conc. 36.2 g/dL (33.0-37.0); Mean Corpuscular Hgb 34.2 pg (27.0-31.0); Mean Corpuscular Volume 94.4 fL (80.0-94.0); Mean Platelet Volume 9.8 fL (7.4-10.4); Platelet Count 156 10^3/uL (130-400); Red Blood Cell Count 4.85 10^6/uL (4.70-6.10); Red Cell Dist. Width 14.2 % (11.5-14.5); White Blood Cell Count 8.2 10^3/uL (4.8-10.8)
[2023-09-13 08:10] LABS: Glucose - Point of Care 122 mg/dl (70-99)
--- NOTE | 2023-09-13 08:22 | W.PN.NEURO.1 ---
Addendum entered and electronically signed by Brendon Velazquez MD 09/13/23 13:58:
I saw and evaluated the patient I reviewed the note by Darcy Garber agree with the findings the following comments:
87-year-old male with a past no history of atrial fibrillation on Xarelto, peripheral neuropathy, hypertension presenting the hospital with Wernicke's aphasia.
Patient had some worsening during my examination showing worsened aphasia right facial droop and minor right arm drift with him which triggered urgent CT head noncontrast which showed expected late acute ischemic infarct without hemorrhage. Likely
patient return to his previous examination on reevaluation mostly significant for some mild comprehension of deficits from mild Wernicke's type aphasia, his right facial droop and right arm weakness improved.
MRI brain shows acute infarcts mostly in the left temporal lobe but also in the left frontal and parietal lobes all within the left MCA territory. MRA neck somewhat motion degraded but appears less than 50% stenosis of the left carotid.
Carotid ultrasound shows less than 50% stenosis of the carotids bilaterally.
Assessment: Suspicion for atheroembolic rather than cardioembolic stroke and Xarelto failure given high LDL, minor carotid plaque seen, and the stroke is all within the territory of the left carotid artery. Less than 50% stenosis with mean medical
management.
Discussed with patient and his that patient's with recent stroke are sometimes seen to have minor fluctuations as a result of the stroke itself, sometimes can be seen with blood pressure fluctuations fatigue and dehydration as well.
Recommendations
-Discussed my recommendation for SNF or subacute rehab with patient and his
-Resume Xarelto tonight
-Would place on aspirin 81 mg daily for 3 weeks then stop for additional protection against atheroembolic stroke
-Srarted Zetia to help decrease LDL
-Speech, physical occupational therapies
-Goal normotension
Original Note:
Documented by User: Darcy Carrera NP 09/13/23 11:15
Today's Communication / Plan
-
.
Neuro Assessment/Plan
Assessment
This is an 87-year-old male with a PMH of Afib (Xarelto), HTN, CHF, peripheral neuropathy, YENNY (cpap), previous bladder and prostate cancer who presented to on 09/11/23 with report of confusion, speech abnormality, and a starring spell
precipitating these changes on 09/10/23. He was not a candidate for TNK/IAT due to Xarelto in the last 24 hours and outside of time window.
-MRI brain 09/12/23: There are multiple scattered small foci of acute to subacute infarction in the left hemisphere, in the distribution of the left MCA, as described above. In the right paramedian parietal lobe, there is also a 2 mm punctate focus
of acute to subacute infarction. Moderate diffuse atrophy. Moderate leukomalacia, predominantly periventricular.
-MRA head/neck 09/12/23: There is motion artifact involving the proximal left internal and external carotid arteries. However, no convincing evidence for a focal greater than 50% diameter reduction, with no evidence for hemodynamically significant
stenosis. No significant narrowing of the right carotid bulb or proximal right internal carotid artery. Normal appearance of codominant vertebral arteries. Normal appearance of the basilar artery.
-Carotid ultrasound 09/12/23: Minimal carotid bulb plaque on each side, measurements suggestive of less than 50% stenosis on each side.
-EEG 09/11/23: Subtle left temporal lobe slowing at T5 may be due to structural lesion in this area, not specific as to etiology but can be caused by ischemic stroke to the area. No seizures or interictal epileptiform discharges seen.
-CT Head 09/13/23: There are no acute intracranial abnormalities when compared with the prior study. The multiple punctate areas of cortical and subcortical subacute nonhemorrhagic infarction seen on the 09/12/2023 MRI examination are not evident on
this CT study. There is moderate diffuse cortical atrophy with moderate nonspecific white matter changes as described above.
I. Acute to subacute scattered ischemic infarcts throughout the L MCA territory in addition to a right parietal lobe punctate infarct. Etiology likely embolic.
II. Worsening of symptoms this morning likely a fluctuation in the existing stroke symptoms.
III. Likely mild cognitive impairment vs mild dementia at baseline.
Plan
-Resume home Xarelto 20mg daily this evening (09/13/23). Continue aspirin 81mg daily for three weeks then discontinue.
-Goal normotension. Monitor on telemetry.
-LDL goal <70. LDL is 124. Patient is intolerant to statins, Zetia 10mg daily initiated.
-Goal normoglycemia, hbA1c is 6.5.
-NIHSS and neurological checks per unit guidelines.
-Provide patient/family with a stroke education packet.
-PT/OT/ST evaluations.
-DVT prophylaxis.
-Will follow.
Subjective/Objective
Subjective Data
Date of Service: September 13, 2023
No acute events overnight. This morning, patient was noted to have improved speech but on Neurology evaluation around 0945 speech was severely dysarthric with worsened aphasia. RUE continues to be weak. He denies any headache, dizziness, vision
changes, swallowing difficulty, numbness, chest pain, palpitations, and shortness of breath. PT reports bilateral foot drop/abnormal gait but patient reports this is his chronic gait. CT head was obtained and is negative for any acute findings.
Objective Data
Vital Signs
Temp Pulse Resp BP Pulse Ox
98.4 F 83 18 153/95 96
09/13/23 08:12 09/13/23 08:12 09/13/23 08:12 09/13/23 08:12 09/13/23 08:12
Lab Results
09/13/23 07:36
PT 15.5 Sec (11.4-14.6) H 09/11/23 14:00
INR 1.24 09/11/23 14:00
APTT 35.5 Sec (23.4-35.0) H 09/11/23 14:00
Sodium 138 mmol/L (135-145) 09/11/23 12:15
Potassium 4.1 mmol/L (3.5-5.1) 09/11/23 12:15
BUN 20 mg/dl (9-20) 09/11/23 12:15
Glucose 183 mg/dl (70-99) H 09/11/23 12:15
Calcium 9.9 mg/dl (8.4-10.2) 09/11/23 12:15
LDL Cholesterol, Calc 124 mg/dl 09/12/23 06:00
Vitamin B12 806 pg/ml (239-931) 09/12/23 06:00
Patient Allergies
atorvastatin [From Lipitor] Allergy (Verified 03/03/23 11:42)
muscle weakness
rosuvastatin Allergy (Verified 09/11/23 16:49)
muscle cramps
simvastatin [From Zocor] Allergy (Verified 09/11/23 16:49)
leg cramps
Sulfa (Sulfonamide Antibiotics) Allergy (Verified 03/03/23 11:42)
Rash
LDL Level: >70, statin contraindicated (zetia ordered)
Review of Systems
-
History Source: Patient
EENT: Negative Blurry Vision, Decreased Vision or Swallowing Difficulty
Respiratory: Negative Cough or Trouble Breathing
Cardiac: Negative Chest Pain or Palpitations
Abdomen/GI: Negative Nausea
Neuro: Weakness and Speech Problem; Negative Dizzy, Headache, Numbness or Ataxia
Physical Exam
-
General: No Apparent Distress
Eyes: No Ptosis and PERRLA
HEENT: Normocephalic and Atraumatic
Neck: Full Range of Motion
Respiratory: No Dyspnea
GI: Non-distended
Extremities: No Clubbing, No Cyanosis and No Edema
Psych: Anxious
Extended Neurological Exam
Mood & Affect: Anxious
Attention Span & Concentration: Awake, Alert, Interactive and No Difficulty with 2 Step Request
Memory: Reduced (oriented to place/self, not time/situation)
Tremor: Hand Tremor Absent and Head Tremor Absent
Involuntary Movement: None
Speech: Expressive Aphasia, Receptive Aphasia and Dysarthric
Cranial Nerve II: Left Eye: Pupillary Reactivity Unremarkable, Pupillary Size Unremarkable and Visual Santillan Intact
Cranial Nerve II: Right Eye: Pupillary Reactivity Unremarkable, Pupillary Size Unremarkable and Visual Santillan Intact
Cranial Nerves III, IV, : Extraocular Movement: Extraocular Movement Full in all Directions
Cranial Nerve VII: Facial Symmetry: Reduced (slight right facial drooping)
Cranial Nerve VIII: Hearing: Grossly Reduced (wears hearing aids)
Cranial Nerves IX, X: Palate Movement: Palate Elevation Symmetric
Cranial Nerve XI: Shoulder Shrug: Unremarkable
Cranial Nerve XII: Tongue Protusion: Midline
Muscle Strength, Overall: Reduced on Right (RUE 4/5)
Pronator Drift: Drift in Right Upper Extremity and No Drift in Lower Extremities
Touch Sensation: Double Simultaneous Stimulation Unremarkable
Coordination: Otxxcq-oqwc-lmpaob Testing Unremarkable
Modified Joselito Score (MRS)
-
Modified Joselito Scale (mRS): Moderate disability. Requires some help, able to walk unassisted.
Score: 3
Data Reviewed
-
CT Head: Report Reviewed and Image Reviewed
MRI Head: Report Reviewed and Image Reviewed
MRA Head: Report Reviewed and Image Reviewed
MRA Neck: Report Reviewed and Image Reviewed
Carotid Ultrasound: Report Reviewed
Labs: Report Reviewed
Lipid Profile: Report Reviewed
HgbA1C: Report Reviewed
Reviewed with: Physician and Patient
Medications
-
Active Medications
Generic Name Dose Route Start Last Admin
Trade Name Freq PRN Reason Stop Dose Admin
Acetaminophen 650 mg 09/11/23 16:47
Acetaminophen 325 Mg Tablet PO 10/09/23 16:46
Q4HPRN PRN
mild pain/ fever>100.5F
Amlodipine Besylate 5 mg 09/12/23 01:00 09/13/23 01:00
Amlodipine 5 Mg Tablet PO 10/10/23 00:59 Not Given
DAILY@0100 MITCH
Aspirin 81 mg 09/12/23 08:00 09/13/23 09:02
Aspirin 81 Mg (Enteric Coated) Tablet PO 10/10/23 07:59 81 mg
DAILY MITCH Administration
Carvedilol 6.25 mg 09/11/23 20:00 09/13/23 09:01
Carvedilol 6.25 Mg Tablet PO 10/09/23 19:59 6.25 mg
BID MITCH Administration
Dextrose 12.5 grams 09/11/23 16:47
Dextrose 50% (0.5 Grams/Ml) 50 Ml Syringe IV 10/09/23 16:46
Q10FFOE PRN
hypoglycemia
Protocol
Ezetimibe 10 mg 09/11/23 22:00 09/12/23 20:53
Ezetimibe (Zetia) 10 Mg Tablet PO 10/09/23 21:59 10 mg
HS MITCH Administration
Famotidine 20 mg 09/12/23 01:00 09/13/23 01:00
Famotidine 20 Mg Tablet PO 10/10/23 00:59 Not Given
DAILY@0100 MITCH
Furosemide 20 mg 09/12/23 08:00 09/13/23 09:02
Furosemide 20 Mg Tablet PO 10/10/23 07:59 20 mg
DAILY MITCH Administration
Glucagon 1 mg 09/11/23 16:47
Glucagon 1 Mg Vial IM 10/09/23 16:46
PRN PRN
hypoglycemia
Protocol
Cefazolin Sodium 2 grams in 10 mls @ 120 mls/hr 09/11/23 18:00 09/13/23 09:02
Ancef IV 10 mls
Q8H MITCH Administration
Insulin Aspart 0 units 09/11/23 16:47 09/13/23 09:01
Insulin Aspart Low Resistance 300 Units/3 Ml Pen.Injctr SC 10/09/23 16:46 Not Given
AC MITCH
Protocol
Latanoprost 0 drop 09/12/23 22:00 09/12/23 20:53
Latanoprost 0.005% (Ophthalmic Solution) 2.5 Ml Bottle RIGHT EYE 10/10/23 21:59 1 drop
HS MITCH Administration
Rivaroxaban 20 mg 09/13/23 18:00
Rivaroxaban 20 Mg Tablet PO 10/11/23 17:59
QPM MITCH
Sacubitril/Valsartan 1 tab 09/12/23 08:00 09/13/23 09:02
Sacubitril 49 Mg/Valsartan 51 Mg (Entresto) Tab PO 10/10/23 07:59 1 tab
DAILY MITCH Administration
Sacubitril/Valsartan 1 tab 09/12/23 01:00 09/13/23 01:00
Sacubitril 97 Mg/Valsartan 103 Mg (Entresto) Tab PO 10/10/23 00:59 Not Given
DAILY@0100 MITCH
Sodium Chloride 0 flush 09/11/23 17:00 09/13/23 09:02
Sodium Chloride 0.9% (Flush) Syringe IV 10/09/23 16:59 2 flush
PER PROTOCOL MITCH Administration
Tamsulosin HCl 0.4 mg 09/11/23 18:00 09/12/23 17:55
Tamsulosin 0.4 Mg Capsule PO 10/09/23 17:59 0.4 mg
QPM MITCH Administration
Tetrahydrozoline HCl 0 drop 09/12/23 18:09
Tetrahydrozoline 0.05% (Ophthalmic Drops) 15 Ml Bottle BOTH EYES 10/10/23 18:08
DAILYPRN PRN
dry eyes
Tolterodine Tartrate 4 mg 09/12/23 08:00 09/13/23 09:01
Tolterodine 4 Mg Extended Release Capsule PO 10/10/23 07:59 4 mg
DAILY MITCH Administration
Home Medications
�Medication �Instructions �Recorded
L.acidophilus-bif.longum 15 mg (1 1 cap PO DAILY@0100 04/06/22
billion cell)capsule,delayed Gastrointestinal issue
release (Probiotic Pearls)
Prevagen 1 tab PO DAILY Supplement 04/06/22
Super Q10 100 mg PO DAILY Supplement 04/06/22
amlodipine 5 mg tablet 5 mg PO DAILY@0100 Blood pressure 04/06/22
ascorbic acid (vitamin C) 500 mg 500 mg PO DAILY Supplement 04/06/22
tablet (Vitamin C)
famotidine 20 mg tablet 20 mg PO DAILY@0100 04/06/22
Gastrointestinal issue
ferrous sulfate 325 mg (65 mg 325 mg PO DAILYPRN PRN supplement 04/06/22
iron) tablet (iron)
furosemide 40 mg tablet (Lasix) 20 mg PO DAILY Fluid 04/06/22
retention/Swelling
melatonin 5 mg tablet 5 mg PO DAILY@0100 Sleep 04/06/22
multivitamin 1 tab PO DAILY Supplement 04/06/22
sacubitril 97 mg-valsartan 103 mg 1 tab PO DAILY@0100 Heart Failure 04/06/22
tablet (Entresto)
tamsulosin 0.4 mg capsule 0.4 mg PO QPM Urinary Issue 04/06/22
vibegron 75 mg tablet (Gemtesa) 75 mg PO DAILY Overactive bladder 04/06/22
docosahexaenoic acid-epa 1 tab PO DAILY Heart 05/09/22
disease/condition
Neuropathy Vitamin 1 tab PO DAILY Supplement 03/03/23
carvedilol 6.25 mg tablet 6.25 mg PO BID Heart Failure 03/03/23
rivaroxaban 20 mg tablet (Xarelto) 20 mg PO QPM Blood Clot 03/03/23
Prevention/Tx
acetaminophen 650 mg 650 mg PO TID Pain 09/11/23
tablet,extended release
latanoprost 0.005 % eye drops 1 drp RIGHT EYE HS Eye Condition 09/11/23
ranibizumab 0.5 mg/0.05 mL 0 mg intravitreal Q10W Eye 09/11/23
intravitreal syringe (Lucentis) Condition
sacubitril 49 mg-valsartan 51 mg 1 tab PO DAILY Heart Failure 09/11/23
tablet (Entresto)
tetrahydrozoline 0.05 % eye drops 1 drp BOTH EYES DAILYPRN PRN dry 09/11/23
(Visine) eyes
NIH Stroke Score
Subsequent NIH Scale
Date of Subsequent NIH Scale: 09/13/23
Time of Subsequent NIH Scale: 09:45
NIH Stroke Score
Level of Consciousness: 0 - Alert
LOC Questions: 2-Neither correct
LOC Commands: 0-Performs both correctly
Best Horizontal Gaze: 0-Normal
Visual Santillan: 0=Normal, no visual loss
Facial Palsy: 0=Normal, symmetrical
Motor - Right Arm: 1=Drift < 10 seconds
Motor - Left Arm: 0=No drift 10 seconds
Motor - Right Le-No drift 5 seconds
Motor - Left Le-No drift 5 seconds
Limb Ataxia: 0-Absent
Sensation: 0-Normal
Best Language: 1-Mild aphasia
Dysarthria: 2-Severe slurring
Extinction and Inattention: 0-No abnormality
Total Score:: 6
Modified [place] (mRS) Score
Modified [place] Scale (mRS): Moderate disability. Requires some help, able to walk unassisted.
Score: 3

Documented by User: Brendon Velazquez MD 09/13/23 13:54
Modified [place]ie Score (MRS)
-
Score: 3
NIH Stroke Score
NIH Stroke Score
Total Score:: 6
Modified Joselito (mRS) Score
Score: 3
[2023-09-13] MEDS: COREG 6.25 MG PO ×2 (09:01→20:11)
[2023-09-13] MEDS: DETROL LA 4 MG PO (09:01)
[2023-09-13] MEDS: NOVOLOG FLEXPEN-LOW RESISTANCE SC (09:01)
[2023-09-13] MEDS: ENTRESTO 49 MG/51 MG 1 TAB PO (09:02)
[2023-09-13] MEDS: ASPIR LOW (ENTERIC COATED) 81 MG PO (09:02)
[2023-09-13] MEDS: ANCEF 10 IV ×2 (09:02→17:09)
[2023-09-13] MEDS: FLUSH (NSS) 2 FLUSH IV ×2 (09:02→17:10)
[2023-09-13] MEDS: LASIX 20 MG PO (09:02)
[2023-09-13 09:36] LABS: Blood Urea Nitrogen 19 mg/dl (9-20); Calcium 9.5 mg/dl (8.4-10.2); Carbon Dioxide 27 mmol/L (22-30); Chloride 103 mmol/L (98-107); Estimated Creatinine Clearance 74 ml/min; Glucose 115 mg/dl (70-99); Potassium 3.5 mmol/L (3.5-5.1); Sodium 137 mmol/L (135-145); eGFR > 60.00
--- NOTE | 2023-09-13 10:45 | PTCARENOTE ---
patient awake this am, cooperative with care. NIH assessment completed, results 1 due to right leg drift. appeared more oriented this am when compared to previous day. patient then participated with PT and OT, they ambulated patient with walker and
sat him in the chair to eat breakfast. patient was assessed by physician and found with changes. new [facility] completed with results 8. patient for CT scan- attempted to stand from chair and patient unable to stand. patient placed back in bed. once
lying flat in bed, speech improving, right sided weakness improving. patient taken to CT. plan of care on going.
--- NOTE | 2023-09-13 11:53 | CM ---
Addendum entered by Lynn Tompkins 09/13/23 16:24:
List of short term skilled bed facilities reviewed with
Need to follow up tomorrow for preferences to submit for referrals
Addendum entered by Lynn Tompkins 09/13/23 14:48:
Per Dr. Rios, patient agreeable with discharge plan to SNF; will provide list to and submit referrals
Original Note:
Spoke with patient's to discuss discharge planning; explained that PT recommends SNF @ discharge
reported that she is unable to care for her at home and said her will probably not agree to go to a SNF.
asked if Dr. Velazquez would speak with her about going to SNF
CM will continue to follow and support SNF coordination once patient agrees with plan
[2023-09-13 12:46] LABS: Glucose - Point of Care 152 mg/dl (70-99)
[2023-09-13] MEDS: NOVOLOG FLEXPEN-LOW RESISTANCE 1 UNITS SC (12:56)
[2023-09-13] MEDS: NORVASC 5 MG PO ×2 (16:14→23:22)
[2023-09-13 16:58] LABS: Glucose - Point of Care 150 mg/dl (70-99)
--- NOTE | 2023-09-13 17:00 | PTCARENOTE ---
bp elevated 167/108, Dr Rios aware, ordered dose of norvasc to be given. Dose given, repeat BP 172/96. plan of care ongoing
[2023-09-13] MEDS: NOVOLOG FLEXPEN-LOW RESISTANCE 300 UNITS SC (17:09)
[2023-09-13] MEDS: XARELTO 20 MG PO (17:10)
[2023-09-13] MEDS: FLOMAX 0.400000000000000022 MG PO (17:10)
--- NOTE | 2023-09-13 17:12 | W.PN.HOSP.TC ---
Today's Communication/Plan
-
SNF Monday
add BID orthostatic
Assessment / Plan
Assessment / Plan
pt is an 87 year old male
acute CVA with Expressive/Receptive Aphasia with worsening confusion--apprec neuro, MRI with infarcts in the left MCA territory notably the left temporal frontal and parietal lobes all within the left MCA territory, no infarcts appreciated on the
right--MRA COW within normal limits, carotid US without significant stenosis--await PT/OT--add asa x 3 weeks then stop--echo no change --pt appears to have cellulitis of right arm---cont ancef, likely can stop tomorrow
Chronic HFpEF--does not appear to be in an acute exacerbation although does have edema bilaterally (Echo Apr 2023: EF 50-55%)--Continue Entresto--Continue Lasix--Monitor Is&OS and Daily Weights
Permanent Atrial Fibrillation--Xarelto resuming tonight--Continue Coreg for rate control
Essential Hypertension--Continue Amlodipine and Coreg with parameters
Hyperlipidemia--Check Lipid Panel--Add Zetia as patient is intolerant to statins
Diabetes Mellitus, Type II--Patient not currently on meds--Check LugO3a--qiy SSI coverage
BPH--Continue Flomax
Hx Aortic Stenosis s/p TAVR
Hx Bladder Cancer s/p BCG
DVT proph: SCDs
Code Status: Full Code
Anticipated Discharge: > 48 hours
Subjective/Interval History
-
Date of Service: September 13, 2023
pt had episode while sitting in the chair earlier today of inability to speak
Objective Data
-
Labs:
Laboratory Results
09/13/23
07:36
WBC 8.2
Hgb 16.6
Hct 45.8
Plt Count 156
Sodium 137
Potassium 3.5
Chloride 103
Carbon Dioxide 27
BUN 19
Creatinine 0.8
Glucose 115 H
Calcium 9.5
Vital Signs:
max temp for 24 hours
09/12/23
23:39
Temp 98.1 F
Vital Signs
Temp Pulse Resp BP Pulse Ox
97.6 F 77 18 172/96 97
09/13/23 16:10 09/13/23 16:10 09/13/23 16:10 09/13/23 17:00 09/13/23 16:10
I&O
09/12/23 09/13/23 09/14/23
06:59 06:59 06:59
Intake Total 980 / 980
Output Total 1200 / 1200 650 / 650 150 / 150
Balance -1200 / -1200 330 / 330 -150 / -150
Review of Systems
-
All other systems: Reviewed and negative
Physical Exam
-
General: Well Developed, Well Nourished, No Apparent Distress and Other (argumentative)
HEENT: Normocephalic and Atraumatic
Respiratory: Clear to Auscultation; Negative Wheezes or Rhonchi
Cardiac: Regular Rhythm and S1/S2; Negative Murmur
GI: Soft, Nontender, Nondistended and Normal Bowel Sounds
Musculoskeletal: No Clubbing, No Cyanosis and No Edema
Neuro: Awake
[2023-09-13 21:42] LABS: Glucose - Point of Care 176 mg/dl (70-99)
[2023-09-13] MEDS: ZETIA 10 MG PO (23:21)
[2023-09-13] MEDS: PEPCID 20 MG PO (23:22)
[2023-09-13] MEDS: XALATAN OPHTHALMIC SOLUTION 1 DROP RIGHT EYE (23:22)
[2023-09-13] MEDS: ENTRESTO 97 MG/103 MG 1 TAB PO (23:22)
[2023-09-14] VITALS (8 sets, daily range): BP systolic 115–161; BP diastolic 65–118; PULSE 71–103; O2SAT 97; BMI 31.9
[2023-09-14] MEDS: ANCEF 10 IV ×2 (02:44→09:42)
[2023-09-14 05:40] LABS: Hematocrit 43.5 % (39.0-52.0); Hemoglobin 15.7 g/dL (13.0-18.0); Mean Corp Hgb Conc. 36.1 g/dL (33.0-37.0); Mean Corpuscular Hgb 33.8 pg (27.0-31.0); Mean Corpuscular Volume 93.5 fL (80.0-94.0); Mean Platelet Volume 9.8 fL (7.4-10.4); Platelet Count 170 10^3/uL (130-400); Red Blood Cell Count 4.65 10^6/uL (4.70-6.10); Red Cell Dist. Width 14.2 % (11.5-14.5); White Blood Cell Count 7.8 10^3/uL (4.8-10.8)
[2023-09-14 06:40] LABS: Blood Urea Nitrogen 24 mg/dl (9-20); Calcium 9.4 mg/dl (8.4-10.2); Carbon Dioxide 27 mmol/L (22-30); Chloride 102 mmol/L (98-107); Estimated Creatinine Clearance 65 ml/min; Glucose 123 mg/dl (70-99); Magnesium 2.2 mg/dl (1.6-2.3); Potassium 3.4 mmol/L (3.5-5.1); Sodium 138 mmol/L (135-145); eGFR > 60.00
[2023-09-14 08:08] LABS: Glucose - Point of Care 125 mg/dl (70-99)
[2023-09-14] MEDS: COREG 6.25 MG PO ×2 (08:21→19:49)
[2023-09-14] MEDS: NOVOLOG FLEXPEN-LOW RESISTANCE SC (08:21)
[2023-09-14] MEDS: LASIX 20 MG PO (08:21)
[2023-09-14] MEDS: ASPIR LOW (ENTERIC COATED) 81 MG PO (08:22)
[2023-09-14] MEDS: DETROL LA 4 MG PO (08:22)
[2023-09-14] MEDS: NORVASC 5 MG PO ×2 (08:22→19:53)
[2023-09-14] MEDS: ENTRESTO 49 MG/51 MG 1 TAB PO (08:22)
--- NOTE | 2023-09-14 11:30 | W.PN.HOSP.TC ---
Today's Communication/Plan
-
d/c planning
Assessment / Plan
Assessment / Plan
pt is an 87 year old male
acute CVA with Expressive/Receptive Aphasia with waxing/waning confusion--apprec neuro, MRI with infarcts in the left MCA territory notably the left temporal frontal and parietal lobes all within the left MCA territory, no infarcts appreciated on
the right--MRA COW within normal limits, carotid US without significant stenosis--apprec PT/OT--add asa x 3 weeks then stop--echo no change --pt appears to have cellulitis of right arm---cont ancef, can stop
Chronic HFpEF--does not appear to be in an acute exacerbation although does have edema bilaterally (Echo Apr 2023: EF 50-55%)--Continue Entresto--Continue Lasix--Monitor Is&OS and Daily Weights
Permanent Atrial Fibrillation--Xarelto resuming tonight--Continue Coreg for rate control
Essential Hypertension--Continue Amlodipine and Coreg with parameters
Hyperlipidemia--Check Lipid Panel--Add Zetia as patient is intolerant to statins
Diabetes Mellitus, Type II--Patient not currently on meds--Check RkgC0t--ezy SSI coverage
BPH--Continue Flomax
Hx Aortic Stenosis s/p TAVR
Hx Bladder Cancer s/p BCG
DVT proph: SCDs
Code Status: Full Code
Anticipated Discharge: Within 24 hours
Subjective/Interval History
-
Date of Service: September 14, 2023
right facial droop more prominent to me today
Objective Data
-
Labs:
Laboratory Results
09/14/23
05:26
WBC 7.8
Hgb 15.7
Hct 43.5
Plt Count 170
Sodium 138
Potassium 3.4 L
Chloride 102
Carbon Dioxide 27
BUN 24 H
Creatinine 0.9
Glucose 123 H
Calcium 9.4
Vital Signs:
max temp for 24 hours
09/14/23
07:36
Temp 97.8 F
Vital Signs
Temp Pulse Resp BP Pulse Ox
97.8 F 92 18 155/103 97
09/14/23 07:36 09/14/23 07:36 09/14/23 07:36 09/14/23 07:36 09/14/23 07:36
I&O
09/13/23 09/14/23 09/15/23
06:59 06:59 06:59
Intake Total 980 / 980 120 / 120
Output Total 650 / 650 700 / 700
Balance 330 / 330 -580 / -580
Review of Systems
-
All other systems: Reviewed and negative
Physical Exam
-
General: Well Developed, Well Nourished and No Apparent Distress
HEENT: Normocephalic and Atraumatic
Respiratory: Clear to Auscultation; Negative Wheezes or Rhonchi
Cardiac: Irregular Rhythm
GI: Soft, Nontender, Nondistended and Normal Bowel Sounds
Musculoskeletal: No Clubbing, No Cyanosis and No Edema
Neuro: Facial Droop
--- NOTE | 2023-09-14 11:34 | W.PN.NEURO.1 ---
Addendum entered and electronically signed by Brendon Velazquez MD 09/14/23 11:56:
I saw and evaluate the patient I reviewed the note by Darcy Garber agree with the findings the following comments:
87-year-old male with a past med history of atrial fibrillation on Xarelto, CHF, hypertension and chronic peripheral neuropathy presenting the hospital with Wernicke's type aphasia. The day previous to admission had had an episode of staring with
some left-sided eye deviation that probably represented a TIA.
Workup here has shown acute infarct in the left MCA territory explaining his aphasia. He did have a fluctuation with transient worsening (right facial droop right arm drift and worsened expressive aphasia) yesterday during my assessment of him but
then returned back to his previous neurologic examination, CT head noncontrast did not show any large new infarction or hemorrhage.
MRA of the head and neck and carotid ultrasound support less than 50% stenosis of the carotids bilaterally
Neurologic examination this morning shows some dysarthria minor right facial droop, mild amount of mixed aphasia, pronator arm drift on this examination for me today.
Assessment: Suspicion for atheroembolic stroke given LDL is high in presence of carotid plaque. Cardioembolic stroke not able to be ruled out but in general there is no good evidence to switch the modality of anticoagulation and I think that there
are other reasonable causes of this particular stroke so as not to conclude that this is a Xarelto failure that would necessitate switching his chronic anticoagulation medication.
Not uncommon to have some fluctuations in neurologic examination in the days shortly after having had an ischemic stroke. Not appearing to have any significant dependence on the higher blood pressures and no significant carotid or intracranial
severe stenosis. Discussed with patient and that patient may occasionally have some episodes of worsening with stress dehydration and fatigue but on the whole expect improvement over several weeks to few months from the stroke.
Recommendations
-Encouraged patient for discharge to rehab if he qualifies given would be a very large adjustment to have him and his home alone with patient's new disability from stroke
-21 days of aspirin and then stop
-Continue newly started Zetia to help LDL
-Continue Xarelto
-Goal normotension
-Neurology follow-up 4 to 6 weeks after discharge
Will follow as needed call with questions and concern
Original Note:
Documented by User: Darcy Carrera NP 09/14/23 11:44
Today's Communication / Plan
-
.
Neuro Assessment/Plan
Assessment
This is an 87-year-old male with a PMH of Afib (Xarelto), HTN, CHF, peripheral neuropathy, YENNY (cpap), previous bladder and prostate cancer who presented to on 09/11/23 with report of confusion, speech abnormality, and a starring spell
precipitating these changes on 09/10/23. He was not a candidate for TNK/IAT due to Xarelto in the last 24 hours and outside of time window.
-MRI brain 09/12/23: There are multiple scattered small foci of acute to subacute infarction in the left hemisphere, in the distribution of the left MCA, as described above. In the right paramedian parietal lobe, there is also a 2 mm punctate focus
of acute to subacute infarction. Moderate diffuse atrophy. Moderate leukomalacia, predominantly periventricular.
-MRA head/neck 09/12/23: There is motion artifact involving the proximal left internal and external carotid arteries. However, no convincing evidence for a focal greater than 50% diameter reduction, with no evidence for hemodynamically significant
stenosis. No significant narrowing of the right carotid bulb or proximal right internal carotid artery. Normal appearance of codominant vertebral arteries. Normal appearance of the basilar artery.
-Carotid ultrasound 09/12/23: Minimal carotid bulb plaque on each side, measurements suggestive of less than 50% stenosis on each side.
-EEG 09/11/23: Subtle left temporal lobe slowing at T5 may be due to structural lesion in this area, not specific as to etiology but can be caused by ischemic stroke to the area. No seizures or interictal epileptiform discharges seen.
-CT Head 09/13/23: There are no acute intracranial abnormalities when compared with the prior study. The multiple punctate areas of cortical and subcortical subacute nonhemorrhagic infarction seen on the 09/12/2023 MRI examination are not evident on
this CT study. There is moderate diffuse cortical atrophy with moderate nonspecific white matter changes as described above.
I. Acute to subacute scattered ischemic infarcts throughout the L MCA territory in addition to a right parietal lobe punctate infarct. Etiology likely embolic.
II. Likely mild cognitive impairment vs mild dementia at baseline.
Plan
-Continue home Xarelto 20mg daily. Continue aspirin 81mg daily for three weeks only, then discontinue.
-Goal normotension. Monitor on telemetry.
-LDL goal <70. LDL is 124. Patient is intolerant to statins, Zetia 10mg daily initiated.
-Goal normoglycemia, hbA1c is 6.5.
-NIHSS and neurological checks per unit guidelines.
-Provide patient/family with a stroke education packet.
-PT/OT/ST evaluations.
-DVT prophylaxis.
-Patient should follow-up with Neurology as an outpatient, may see the [facility] or one of the physicians.
Subjective/Objective
Subjective Data
Date of Service: September 14, 2023
Patient agitated/confused overnight, threw a urinal at someone and was subsequently moved to a private room. His speech and right side strength is improved from yesterday morning. He endorses forgetfulness, speech difficulty, and RUE
weakness/incoordination. He denies any headache, dizziness, vision changes, swallowing difficulty, numbness, chest pain, palpitations, and shortness of breath.
Objective Data
Vital Signs
Temp Pulse Resp BP Pulse Ox
97.8 F 92 18 155/103 97
09/14/23 07:36 09/14/23 07:36 09/14/23 07:36 09/14/23 07:36 09/14/23 07:36
Lab Results
09/14/23 05:26
09/14/23 05:26
PT 15.5 Sec (11.4-14.6) H 09/11/23 14:00
INR 1.24 09/11/23 14:00
APTT 35.5 Sec (23.4-35.0) H 09/11/23 14:00
Sodium 138 mmol/L (135-145) 09/14/23 05:26
Potassium 3.4 mmol/L (3.5-5.1) L 09/14/23 05:26
BUN 24 mg/dl (9-20) H 09/14/23 05:26
Glucose 123 mg/dl (70-99) H 09/14/23 05:26
Calcium 9.4 mg/dl (8.4-10.2) 09/14/23 05:26
LDL Cholesterol, Calc 124 mg/dl 09/12/23 06:00
Vitamin B12 806 pg/ml (239-931) 09/12/23 06:00
Patient Allergies
atorvastatin [From Lipitor] Allergy (Verified 03/03/23 11:42)
muscle weakness
rosuvastatin Allergy (Verified 09/11/23 16:49)
muscle cramps
simvastatin [From Zocor] Allergy (Verified 09/11/23 16:49)
leg cramps
Sulfa (Sulfonamide Antibiotics) Allergy (Verified 03/03/23 11:42)
Rash
LDL Level: >70, statin contraindicated (zetia ordered)
Review of Systems
-
History Source: Patient
EENT: Negative Blurry Vision, Decreased Vision or Swallowing Difficulty
Respiratory: Negative Cough or Trouble Breathing
Cardiac: Negative Chest Pain or Palpitations
Abdomen/GI: Negative Nausea
Neuro: Weakness, Ataxia and Speech Problem; Negative Dizzy, Headache or Numbness
Physical Exam
-
General: No Apparent Distress
Eyes: No Ptosis and PERRLA
HEENT: Normocephalic and Atraumatic
Neck: Full Range of Motion
Respiratory: No Dyspnea
GI: Non-distended
Extremities: No Clubbing, No Cyanosis and No Edema
Psych: Confused; Negative Intact Judgement/Insight
Extended Neurological Exam
Mood & Affect: Anxious
Attention Span & Concentration: Awake, Alert, Interactive and Mild Difficulty with 2 Step Request
Memory: Reduced (Oriented to self, place, and somewhat to situation. Forgetful and repetitive with conversation.)
Tremor: Hand Tremor Absent and Head Tremor Absent
Involuntary Movement: None
Speech: Quality Unremarkable, Quantity Unremarkable, Expressive Aphasia and Receptive Aphasia
Cranial Nerve II: Left Eye: Pupillary Reactivity Unremarkable, Pupillary Size Unremarkable and Visual Santillan Intact
Cranial Nerve II: Right Eye: Pupillary Reactivity Unremarkable, Pupillary Size Unremarkable and Visual Santillan Intact
Cranial Nerves III, IV, : Extraocular Movement: Extraocular Movement Full in all Directions
Cranial Nerve VII: Facial Symmetry: Normal Facial Symmetry
Cranial Nerve VIII: Hearing: Grossly Reduced (wearing hearing aids)
Cranial Nerves IX, X: Palate Movement: Palate Elevation Symmetric
Cranial Nerve XI: Shoulder Shrug: Unremarkable
Cranial Nerve XII: Tongue Protusion: Midline
Muscle Strength, Overall: Reduced on Right (RUE 4/5)
Pronator Drift: Drift in Right Upper Extremity and Drift in Right Lower Extremity
Touch Sensation: Double Simultaneous Stimulation Unremarkable
Coordination: Jngynp-jydn-ruewen Testing Unremarkable
Babinski Sign: Absent Bilaterally
Modified Joselito Score (MRS)
-
Modified [place] Scale (mRS): Moderate disability. Requires some help, able to walk unassisted.
Score: 3
Data Reviewed
-
CT Head: Report Reviewed and Image Reviewed
MRI Head: Report Reviewed and Image Reviewed
MRA Head: Report Reviewed and Image Reviewed
MRA Neck: Report Reviewed and Image Reviewed
Labs: Report Reviewed
Lipid Profile: Report Reviewed
HgbA1C: Report Reviewed
Reviewed with: Physician and Patient
Medications
-
Active Medications
Generic Name Dose Route Start Last Admin
Trade Name Freq PRN Reason Stop Dose Admin
Acetaminophen 650 mg 09/11/23 16:47
Acetaminophen 325 Mg Tablet PO 10/09/23 16:46
Q4HPRN PRN
mild pain/ fever>100.5F
Amlodipine Besylate 5 mg 09/13/23 22:00 09/14/23 08:22
Amlodipine 5 Mg Tablet PO 10/11/23 21:59 5 mg
BID MITCH Administration
Aspirin 81 mg 09/12/23 08:00 09/14/23 08:22
Aspirin 81 Mg (Enteric Coated) Tablet PO 10/10/23 07:59 81 mg
DAILY MITCH Administration
Carvedilol 6.25 mg 09/11/23 20:00 09/14/23 08:21
Carvedilol 6.25 Mg Tablet PO 10/09/23 19:59 6.25 mg
BID MITCH Administration
Dextrose 12.5 grams 09/11/23 16:47
Dextrose 50% (0.5 Grams/Ml) 50 Ml Syringe IV 10/09/23 16:46
[id number] PRN
hypoglycemia
Protocol
Ezetimibe 10 mg 09/11/23 22:00 09/13/23 23:21
Ezetimibe (Zetia) 10 Mg Tablet PO 10/09/23 21:59 10 mg
HS MITCH Administration
Famotidine 20 mg 09/13/23 22:00 09/13/23 23:22
Famotidine 20 Mg Tablet PO 10/11/23 21:59 20 mg
DAILY@2200 MITCH Administration
Furosemide 20 mg 09/12/23 08:00 09/14/23 08:21
Furosemide 20 Mg Tablet PO 10/10/23 07:59 20 mg
DAILY MITCH Administration
Glucagon 1 mg 09/11/23 16:47
Glucagon 1 Mg Vial IM 10/09/23 16:46
PRN PRN
hypoglycemia
Protocol
Insulin Aspart 0 units 09/11/23 16:47 09/14/23 08:21
Insulin Aspart Low Resistance 300 Units/3 Ml Pen.Injctr SC 10/09/23 16:46 Not Given
AC MITCH
Protocol
Latanoprost 0 drop 09/12/23 22:00 09/13/23 23:22
Latanoprost 0.005% (Ophthalmic Solution) 2.5 Ml Bottle RIGHT EYE 10/10/23 21:59 1 drop
HS MITCH Administration
Rivaroxaban 20 mg 09/13/23 18:00 09/13/23 17:10
Rivaroxaban 20 Mg Tablet PO 10/11/23 17:59 20 mg
QPM MITCH Administration
Sacubitril/Valsartan 1 tab 09/12/23 08:00 09/14/23 08:22
Sacubitril 49 Mg/Valsartan 51 Mg (Entresto) Tab PO 10/10/23 07:59 1 tab
DAILY MITCH Administration
Sacubitril/Valsartan 1 tab 09/13/23 16:05 09/13/23 23:22
Sacubitril 97 Mg/Valsartan 103 Mg (Entresto) Tab PO 10/10/23 00:59 1 tab
DAILY@2200 MITCH Administration
Sodium Chloride 0 flush 09/11/23 17:00 09/13/23 17:10
Sodium Chloride 0.9% (Flush) Syringe IV 10/09/23 16:59 2 flush
PER PROTOCOL MITCH Administration
Tamsulosin HCl 0.4 mg 09/11/23 18:00 09/13/23 17:10
Tamsulosin 0.4 Mg Capsule PO 10/09/23 17:59 0.4 mg
QPM MITCH Administration
Tetrahydrozoline HCl 0 drop 09/12/23 18:09
Tetrahydrozoline 0.05% (Ophthalmic Drops) 15 Ml Bottle BOTH EYES 10/10/23 18:08
DAILYPRN PRN
dry eyes
Tolterodine Tartrate 4 mg 09/12/23 08:00 09/14/23 08:22
Tolterodine 4 Mg Extended Release Capsule PO 10/10/23 07:59 4 mg
DAILY MITCH Administration
Home Medications
�Medication �Instructions �Recorded
Cheacidophilus-bif.longum 15 mg (1 1 cap PO DAILY@0100 04/06/22
billion cell)capsule,delayed Gastrointestinal issue
release (Probiotic Pearls)
Prevagen 1 tab PO DAILY Supplement 04/06/22
Super Q10 100 mg PO DAILY Supplement 04/06/22
amlodipine 5 mg tablet 5 mg PO DAILY@0100 Blood pressure 04/06/22
ascorbic acid (vitamin C) 500 mg 500 mg PO DAILY Supplement 04/06/22
tablet (Vitamin C)
famotidine 20 mg tablet 20 mg PO DAILY@0100 04/06/22
Gastrointestinal issue
ferrous sulfate 325 mg (65 mg 325 mg PO DAILYPRN PRN supplement 04/06/22
iron) tablet (iron)
furosemide 40 mg tablet (Lasix) 20 mg PO DAILY Fluid 04/06/22
retention/Swelling
melatonin 5 mg tablet 5 mg PO DAILY@0100 Sleep 04/06/22
multivitamin 1 tab PO DAILY Supplement 04/06/22
sacubitril 97 mg-valsartan 103 mg 1 tab PO DAILY@0100 Heart Failure 04/06/22
tablet (Entresto)
tamsulosin 0.4 mg capsule 0.4 mg PO QPM Urinary Issue 04/06/22
vibegron 75 mg tablet (Gemtesa) 75 mg PO DAILY Overactive bladder 04/06/22
docosahexaenoic acid-epa 1 tab PO DAILY Heart 05/09/22
disease/condition
Neuropathy Vitamin 1 tab PO DAILY Supplement 03/03/23
carvedilol 6.25 mg tablet 6.25 mg PO BID Heart Failure 03/03/23
rivaroxaban 20 mg tablet (Xarelto) 20 mg PO QPM Blood Clot 03/03/23
Prevention/Tx
acetaminophen 650 mg 650 mg PO TID Pain 09/11/23
tablet,extended release
latanoprost 0.005 % eye drops 1 drp RIGHT EYE HS Eye Condition 09/11/23
ranibizumab 0.5 mg/0.05 mL 0 mg intravitreal Q10W Eye 09/11/23
intravitreal syringe (Lucentis) Condition
sacubitril 49 mg-valsartan 51 mg 1 tab PO DAILY Heart Failure 09/11/23
tablet (Entresto)
tetrahydrozoline 0.05 % eye drops 1 drp BOTH EYES DAILYPRN PRN dry 09/11/23
(Visine) eyes
NIH Stroke Score
Subsequent NIH Scale
Date of Subsequent NIH Scale: 09/14/23
Time of Subsequent NIH Scale: 09:00
NIH Stroke Score
Level of Consciousness: 0 - Alert
LOC Questions: 1-Answers one correctly
LOC Commands: 0-Performs both correctly
Best Horizontal Gaze: 0-Normal
Visual Santillan: 0=Normal, no visual loss
Facial Palsy: 0=Normal, symmetrical
Motor - Right Arm: 1=Drift < 10 seconds
Motor - Left Arm: 0=No drift 10 seconds
Motor - Right Le-Drift < 5 seconds
Motor - Left Le-No drift 5 seconds
Limb Ataxia: 0-Absent
Sensation: 0-Normal
Best Language: 1-Mild aphasia
Dysarthria: 0-Normal
Extinction and Inattention: 0-No abnormality
Total Score:: 4
Modified [place] (mRS) Score
Modified Joselito Scale (mRS): Moderate disability. Requires some help, able to walk unassisted.
Score: 3

Documented by User: Brendon Velazquez MD 09/14/23 11:51
Modified [place] Score (MRS)
-
Score: 3
NIH Stroke Score
NIH Stroke Score
Total Score:: 4
Modified [place] (mRS) Score
Score: 3
[2023-09-14] MEDS: KCL 40 MEQ PO (11:41)
[2023-09-14 12:24] LABS: Glucose - Point of Care 299 mg/dl (70-99)
--- NOTE | 2023-09-14 12:42 | PTCARENOTE ---
Pt with worsening stroke symptoms after therapy and then rest in bed. Worsened symptoms = more exaggerated R side facial droop and garbled speech. Full NIH completed, scored a 3 (2 for R facial droop and 1 for dysarthria). Neuro and hospitalist made
aware. Symptoms quickly improved as patient became more alert. Swallow screen completed and passed.
[2023-09-14] MEDS: NOVOLOG FLEXPEN-LOW RESISTANCE 3 UNITS SC (12:48)
--- NOTE | 2023-09-14 12:56 | PTOTSP ---
Speech Therapy Language Assessment
Patient presents with mild dysarthria and mild expressive/receptive aphasia per QAB (Quick Aphasia Battery). Cognitive deficits also noted but unclear if different from baseline given history of cognitive impairment.
Recommend:
1. Comprehensive assessment of cognitive communication skills in next level of care.
2. ST will continue to follow and complete therapeutic assessment of functional cognitive communication skills as able.
--- NOTE | 2023-09-14 14:03 | CM ---
Case management following for d/c needs
Pt for snf - obtained choices from pt/
[facility] (first choice), [facility]
Referrals sent in Care Port
Plan - transfer to snf, TBD, when medically stable
[2023-09-14 16:48] LABS: Glucose - Point of Care 196 mg/dl (70-99)
[2023-09-14] MEDS: NOVOLOG FLEXPEN-LOW RESISTANCE 1 UNITS SC (17:32)
[2023-09-14] MEDS: FLOMAX 0.400000000000000022 MG PO (17:32)
[2023-09-14] MEDS: XARELTO 20 MG PO (17:32)
[2023-09-14] MEDS: ENTRESTO 97 MG/103 MG 1 TAB PO (21:19)
[2023-09-14] MEDS: PEPCID 20 MG PO (21:19)
[2023-09-14] MEDS: ZETIA 10 MG PO (21:19)
[2023-09-14] MEDS: XALATAN OPHTHALMIC SOLUTION 1 DROP RIGHT EYE (21:19)
[2023-09-14 21:37] LABS: Glucose - Point of Care 150 mg/dl (70-99)
[2023-09-15 03:35] VITALS: BP 149/87
[2023-09-15 05:37] LABS: Hematocrit 43.5 % (39.0-52.0); Hemoglobin 15.3 g/dL (13.0-18.0); Mean Corp Hgb Conc. 35.2 g/dL (33.0-37.0); Mean Corpuscular Hgb 33.3 pg (27.0-31.0); Mean Corpuscular Volume 94.8 fL (80.0-94.0); Mean Platelet Volume 9.9 fL (7.4-10.4); Platelet Count 153 10^3/uL (130-400); Red Blood Cell Count 4.59 10^6/uL (4.70-6.10); Red Cell Dist. Width 14.2 % (11.5-14.5); White Blood Cell Count 6.8 10^3/uL (4.8-10.8)
[2023-09-15 06:00] VITALS: BMI 32.3
[2023-09-15 06:37] LABS: Blood Urea Nitrogen 23 mg/dl (9-20); Calcium 9.3 mg/dl (8.4-10.2); Carbon Dioxide 24 mmol/L (22-30); Chloride 105 mmol/L (98-107); Estimated Creatinine Clearance 85 ml/min; Glucose 125 mg/dl (70-99); Magnesium 2.1 mg/dl (1.6-2.3); Potassium 3.7 mmol/L (3.5-5.1); Sodium 137 mmol/L (135-145); eGFR > 60.00
[2023-09-15 07:41] LABS: Glucose - Point of Care 139 mg/dl (70-99)
[2023-09-15 07:52] VITALS: BP 128/72
[2023-09-15] MEDS: NOVOLOG FLEXPEN-LOW RESISTANCE SC ×2 (08:48→14:46)
[2023-09-15] MEDS: COREG 6.25 MG PO (08:48)
[2023-09-15] MEDS: ENTRESTO 49 MG/51 MG 1 TAB PO (08:48)
[2023-09-15] MEDS: NORVASC 5 MG PO (08:48)
[2023-09-15] MEDS: LASIX 20 MG PO (08:49)
[2023-09-15] MEDS: ASPIR LOW (ENTERIC COATED) 81 MG PO (08:49)
[2023-09-15] MEDS: DETROL LA 4 MG PO (08:49)
--- NOTE | 2023-09-15 09:52 | CM ---
Addendum entered by Kylah Prajapati 09/15/23 13:49:
Spoke with pts at bedside
Discussed IMM
Updated clinicals sent via Care Port
Transport arranged for 5:30PM
Facility aware
Plan - transfer to [facility]
R - [phone]
F - [phone]
Addendum entered by Kylah Prajapati 09/15/23 12:31:
Received call from [facility] [phone], they can accept
Spoke with Pts - agreed with [facility]
Dr Rios made aware
Addendum entered by Kylah Prajapati 09/15/23 10:35:
Received call from Grace at the [facility] - no beds at this time
Original Note:
Case Management following for d/c planning
Pt for SNF -
[facility] - no beds
[facility] - spoke with Coreen - no beds available at [facility] and at [facility] - LM with Grace to review referral and return call if bed available
Called pts [facility] - [phone] to update and obtain additional choices
[facility] and [facility]
Will send referrals in Care Port
Requested PM&R consult
[2023-09-15 11:06] VITALS: BP 132/72
[2023-09-15 12:04] LABS: Glucose - Point of Care 210 mg/dl (70-99)
--- NOTE | 2023-09-15 12:53 | W.PN.HOSP.TC ---
Today's Communication/Plan
-
d/c to acute rehab
Assessment / Plan
Assessment / Plan
pt is an 87 year old male
acute CVA with Expressive/Receptive Aphasia with waxing/waning confusion--apprec neuro, MRI with infarcts in the left MCA territory notably the left temporal frontal and parietal lobes all within the left MCA territory, no infarcts appreciated on
the right--MRA COW within normal limits, carotid US without significant stenosis--apprec PT/OT--add asa x 3 weeks then stop--echo no change --pt appears to have cellulitis of right arm---ancef, can stop
Chronic HFpEF--does not appear to be in an acute exacerbation although does have edema bilaterally (Echo Apr 2023: EF 50-55%)--Continue Entresto--Continue Lasix--Monitor Is&OS and Daily Weights
Permanent Atrial Fibrillation--Xarelto resuming tonight--Continue Coreg for rate control
Essential Hypertension--Continue Amlodipine and Coreg with parameters
Hyperlipidemia--Check Lipid Panel--Add Zetia as patient is intolerant to statins
Diabetes Mellitus, Type II--Patient not currently on meds--Check [id number]--lra SSI coverage
BPH--Continue Flomax
Hx Aortic Stenosis s/p TAVR
Hx Bladder Cancer s/p BCG
DVT proph: SCDs
Code Status: Full Code
Anticipated Discharge: Today
Subjective/Interval History
-
Date of Service: September 15, 2023
pt ready for d/c--accepted to acute
Objective Data
-
Labs:
Laboratory Results
09/15/23
05:29
WBC 6.8
Hgb 15.3
Hct 43.5
Plt Count 153
Sodium 137
Potassium 3.7
Chloride 105
Carbon Dioxide 24
BUN 23 H
Creatinine 0.7
Glucose 125 H
Calcium 9.3
Vital Signs:
max temp for 24 hours
09/14/23
19:40
Temp 97.9 F
Vital Signs
Temp Pulse Resp BP Pulse Ox
97.6 F 70 17 132/72 97
09/15/23 11:06 09/15/23 11:06 09/15/23 11:06 09/15/23 11:06 09/15/23 11:06
I&O
09/14/23 09/15/23 09/16/23
06:59 06:59 06:59
Intake Total 120 / 120 1080 / 1080
Output Total 700 / 700 1250 / 1250
Balance -580 / -580 -170 / -170
Review of Systems
-
All other systems: Reviewed and negative
Physical Exam
-
General: Well Developed, Well Nourished and No Apparent Distress
HEENT: Normocephalic and Atraumatic
Respiratory: Clear to Auscultation; Negative Wheezes, Rales or Crackles
Cardiac: Regular Rhythm and S1/S2; Negative Murmur
GI: Soft, Nontender, Nondistended and Normal Bowel Sounds
Musculoskeletal: No Clubbing, No Cyanosis and No Edema
Neuro: Awake and Alert
[2023-09-15 13:01] VITALS: BP 124/78; PULSE 78
[2023-09-15 13:05] VITALS: BP 124/78; PULSE 78
--- NOTE | 2023-09-15 14:01 | CON.MD ---
Consultation - Medical
-
Referring Provider: Dr. Edilia Rios
Chief Complaint: Stroke
History of Present Illness: 87-year-old male with PMH (as below) presented to [facility] on 09/11/2023 with left gaze preference, short jerking movements of the face and poor responsiveness with progression to confusion and aphasia. CT of
the head without contrast without acute concerns. MRI of the brain noting a left MCA infarct notably in the left temporal, frontal, and parietal lobes. Left internal carotid artery stenosis less than 50%. Thought to have Warnicke's aphasia
secondary to left MCA infarct. Cardioembolic source with a history of A-fib versus atheroembolic from the aorta or nonhemodynamically significant plaque in the left carotid artery. After workup suspicion for atheroembolic and a cardioembolic
stroke given patient on Xarelto. Plan for aspirin for 3 weeks embolic stroke. Xarelto resumed. Concern for cellulitis of the right arm and placed on Ancef which has since been discontinued.
Past Medical History: Chronic heart failure with preserved ejection fraction, aortic stenosis, permanent A-fib, essential HTN, HLD, type 2 diabetes, overactive bladder, bladder cancer s/p BCG, BPH
Procedure History: TAVR, bowel resection with colostomy with reversal, TURBT T, spine surgery
Family History:
Social History:
Functional Level Premorbidly: Independent with all activities
Functional Level Currently:�� Supervision for grooming and lower extremity self-care. Min assist bed mobility, mod assist toilet transfer. Min assist for transfers, min assist ambulating 15 feet x 2 with rolling walker.
Tobacco: Denies
Alcohol: 1 to 2 glasses of wine nightly
Drug use: Denies
Lives with: Spouse
24-hour assistance available: Yes
Number of floors: 2
# steps to enter:
# steps to second floor: Stair glide
Potential First floor set up: Yes
Driving: No
Occupation: Retired
Allergies:
Allergy/AdvReac Type Severity Reaction Status Date / Time
atorvastatin [From Lipitor] Allergy muscle Verified 03/03/23 11:42
weakness
rosuvastatin Allergy muscle Verified 09/11/23 16:49
cramps
simvastatin [From Zocor] Allergy leg cramps Verified 09/11/23 16:49
Sulfa (Sulfonamide Allergy Rash Verified 03/03/23 11:42
Antibiotics)
Review of Systems:
Constitutional: (x) abNormal _fatigue
Eye: (x) Normal _
Ear/Nose/Throat: (x) Normal _
Respiratory: (x) Normal _
Cardiovascular: (x) Normal _
Gastrointestinal: (x) Normal _
Genitourinary: (x) Normal _
Musculoskeletal: (x) Normal _
Integumentary: (x) Normal _
Neurologic: (x) abNormal _stroke with trouble talking and walking
Psychiatric: (x) Normal _
Endocrine: (x) Normal _
Hematologic/Lymphatic: (x) Normal _
Allergic/Immunologic: (x) Normal _
Medications:
Active Current Visit Medication List
Category Date Time Status
Acetaminophen [Tylenol] Med 09/11/23 16:47 Active
650 mg PO Q4HPRN PRN
Amlodipine [Norvasc] Med 09/13/23 22:00 Active
5 mg PO BID
Aspirin Low Dose EC [Aspir Low (Enteric Coated)] Med 09/12/23 08:00 Active
81 mg PO DAILY
Carvedilol [Coreg] Med 09/11/23 20:00 Active
6.25 mg PO BID
Dextrose 50%-Water [Dextrose 50% Syringe] Med 09/11/23 16:47 Active
12.5 grams IV [id number] PRN
Ezetimibe [Zetia] Med 09/11/23 22:00 Active
10 mg PO HS
Famotidine [Pepcid] Med 09/13/23 22:00 Active
20 mg PO DAILY@2200
Flush (0.9% Sodium Chloride) [Flush (Nss)] Med 09/11/23 17:00 Active
See Dose Instructions IV PER PROTOCOL
Furosemide [Lasix] Med 09/12/23 08:00 Active
20 mg PO DAILY
Glucagon [GlucaGen] Med 09/11/23 16:47 Active
1 mg IM PRN PRN
Insulin Aspart Corrective Low [Novolog Flexpen-Low Med 09/11/23 16:47 Active
Resistance]
See Protocol SC AC
Latanoprost [Xalatan Ophthalmic Solution] Med 09/12/23 22:00 Active
See Dose Instructions RIGHT EYE HS
Rivaroxaban [Xarelto] Med 09/13/23 18:00 Active
20 mg PO QPM
Sacubitril 49/Valsartan 51 [Entresto 49 mg/51 mg] Med 09/12/23 08:00 Active
1 tab PO DAILY
Sacubitril 97/Valsartan 103 [Entresto 97 mg/103 mg] Med 09/13/23 16:05 Active
1 tab PO DAILY@2200
Tamsulosin [Flomax] Med 09/11/23 18:00 Active
0.4 mg PO QPM
Tetrahydrozoline 0.05% [Visine Eye Drops] Med 09/12/23 18:09 Active
See Dose Instructions BOTH EYES DAILYPRN PRN
Tolterodine Extended Release [Detrol LA] Med 09/12/23 08:00 Active
4 mg PO DAILY
Vitals:
Temp Pulse Resp BP Pulse Ox
97.6 F 70 17 132/72 97
09/15/23 11:06 09/15/23 11:06 09/15/23 11:06 09/15/23 11:06 09/15/23 11:06
Height 5 ft 9 in
Actual Weight 99.053 kg
Body Mass Index (BMI) 32.3
Physical Exam:
General Appearance/Observation: Well-developed, well-nourished male in no apparent distress.
Pain/Comfort Assessment: Denies
Mood/Affect: Appropriate
Integumentary/Operative Site: No lesions seen during course of exam
Eyes: Conjunctiva/Lids: normal ��� Pupils: pupils equal round and reactive to light and Accommodation
Ears/Nose/Throat: oral mucosa moist,� throat clear.������������ Lips/Teeth/Gums: normal
Cardiovascular: Heart: regular, no murmur
Pulses: dorsalis pedis 2+ bilaterally
Respiratory: Respiratory Effort/Chest Expansion: normal ������ Auscultation: Clear to auscultation bilaterally
Gastrointestinal: abdomen not tender, no distension, normal abdominal bowel sounds
Genitourinary: No Abdalla
Extremities: Edema: None Cyanosis: None Trophic changes: None
Neurology Exam:
Orientation: Alert, Oriented to self, Time, Place
Memory: Impaired
Repetition: Intact
Comprehension: Impaired
Two step command: Intact
Naming: Intact
Cranial Nerves:
�� CNII: Pupillary light reflex: Intact��� Visual Field: Intact
�� CN III, IV, : Extraocular muscles: Intact
�� CN V: Facial Sensation at Forehead: Intact, Maxilla: Intact, Mandible: Intact
�� CN VII: Facial movement: Symmetric
�� CN VIII: Hearing: Hard of hearing, has hearing aid
�� CN IX/X: Speech & swallow: Slight dysarthria/aphasia position of Uvula: Midline
�� CN XI: Shoulder shrug: Symmetric
�� CN XII: Tongue protrusion: Midline
Sensory:
�� Light touch: Intact in bilateral upper and lower extremities
Reflexes:
�� Biceps: 2+ bilaterally
�� Brachioradialis: 2+ bilaterally
�� Triceps: 2+ bilaterally
�� Patellar: 2+ bilaterally
�� Achilles: 0 bilaterally
�� Babinski: Down going bilaterally
�� Clonus: None
�� Kg: Negative bilaterally
Cerebellar: Dysmetria/Ataxia: None
Musculoskeletal:Motor: (Manual muscle scale 0-5)
Muscle SA EF WE EE FF FA HF KE DF EHL PF
Right� 4 5 5 4 5 5 2 4 1 1 4
Left 4 5 5 4 5 5 2 4 1 1 4
Tone: Normal in all extremities
Range of Motion: Passively within functional limits in all extremities
Lab Results
Laboratory Data
09/15/23 05:29
09/15/23 05:29
PT 15.5 Sec (11.4-14.6) H 09/11/23 14:00
INR 1.24 09/11/23 14:00
APTT 35.5 Sec (23.4-35.0) H 09/11/23 14:00
Total Bilirubin 0.9 mg/dl (0.2-1.3) 09/11/23 12:15
AST 24 U/L (17-59) 09/11/23 12:15
ALT 22 U/L (0-50) 09/11/23 12:15
Alkaline Phosphatase 81 U/L (38-126) 09/11/23 12:15
Total Protein 7.5 g/dl (6.3-8.2) 09/11/23 12:15
Albumin 4.5 g/dl (3.5-5.0) 09/11/23 12:15
Diagnostic Results: as per HPI
Assessment
87-year-old right-handed male PMH(Chronic heart failure with preserved ejection fraction, aortic stenosis, permanent A-fib, essential HTN, HLD, type 2 diabetes, overactive bladder, bladder cancer s/p BCG, BPH) left MCA CVA with aphasia, ADL, and
amatory dysfunction.
Plan
PM&R PT/OT to increase independence with ADLs, improve balance, coordination, endurance, strength, mobility, community reintegration, decreased burden of care on others and family education.
CVA: Secondary prophylaxis with aspirin for 3 weeks, Eliquis, statin, and blood pressure control (SBP less than 180 and diastolic less than 100 to participate with therapy for ischemic stroke). Monitor neurologic status.
Dysarthria: speech
Aphasia: speech, able to communicate needs
HTN: Continue medications, monitor closely
HLD: Statin������
Atrial fibrillation:� Continue anticoagulation and rate control medications.��������������������������������� ���������
CHF: EF 50-55%, beta laly, monitor fluid status
Anemia: Likely multifactorial.� Continue to monitor.
Psych: Psychology consult.� Monitor mood, adjust medications as needed.
Skin: monitor for pressure sores/rashes/lesions.
Pain: acetaminophen as needed.
Bowel: Colace and Senna, PRN bisacodyl.
Bladder: Time void, PVRs, PRN straight cath. Flomax, tolterodine
Pulmonary embolism history: Eliquis
Pulmonary: Incentive spirometry
Obesity: Continue to high school guidance counselor patient about diet adjustments to control obesity. Body habitus and increased force to move body and extremities causes further difficulty with functional tasks.
Safety: Continue to reinforce assistance with all transfers.
Code Status:� Full code per chart
Dispo (date/plan/equipment needs): Home with family care.
Functional and Medical Goals: Modified Independent with ADL�s, ambulation, transfers
Discharge Destination: Acute inpatient rehabilitation
Summary of recommendations:
- Discharge Destination: Acute inpatient rehabilitation
CVA: Secondary prophylaxis with aspirin, statin, and blood pressure control (SBP less than 180 and diastolic less than 100 to participate with therapy for ischemic stroke). Continue to monitor neurologic status.
Dysarthria: speech
Aphasia: speech
Bowel: Colace and Senna, PRN bisacodyl.
Bladder: Time void, PVRs, PRN straight cath. Flomax, tolterodine
Pulmonary embolism history: Eliquis
Thank you for allowing me to care for your patient. Please contact me with any questions or concerns.
[2023-09-15 16:22] VITALS: BP 122/76
--- NOTE | 2023-09-15 16:34 | W.DCSUMMARY ---
Discharge Summary
Discharge Data
Date of Admission: 09/12/23
Date of Discharge: 09/15/23
-
Pending Results: No
Hospital Course
Primary care physician : Roosevelt Huynh
Principal Discharge diagnosis : Acute stroke with expressive/receptive aphasia
Chronic Discharge diagnosis : Chronic diastolic congestive heart failure without exacerbation, permanent atrial fibrillation, essential hypertension, hyperlipidemia, type II but diabetes mellitus, benign prostatic hyperplasia, history of aortic
stenosis status post TAVR, history of bladder cancer status post BCG
Hospital Course : Patient was an 87 y/o male with a past medical history of diabetes mellitus, hyperlipidemia, hypertension, permanent atrial fibrillation, cardiomyopathy, heart failure, aortic stenosis (status post transcatheter aortic valve
replacement), obstructive sleep apnea, bilateral lower extremity neuropathy, depression, history of bladder and prostate cancer, and chronic cognitive impairment who presented for a short episode of slumping to his left side the day prior to
admission and some confusion with slurred speech 3 hours prior to arrival in the emergency department. Patient was a poor historian due to change in mental status. His reported that the prior day's episode of slumping to the side was short in
duration but he was noted to have more confusion than at baseline. While in the room, patient had trouble following commands and frequently substitutes incorrect words during speech. Patient was brought in as observation.
Problem #1: Acute stroke with receptive and expressive aphasia. Patient was seen in consultation by neurology. MRI did show multiple scattered foci of acute to subacute infarct in the left hemisphere. Echocardiogram was checked but no embolic
source was found. Patient was placed on aspirin and kept on Xarelto. He will continue 21 days of aspirin and then stop. There was some discussion of the possibility of plaque rupture in the left carotid artery. Neck MRA was inconclusive so
vascular ultrasound was done. There is no evidence of hemodynamically significant stenosis.
Problem #2: All other medical issues. These include Chronic diastolic congestive heart failure without exacerbation, permanent atrial fibrillation, essential hypertension, hyperlipidemia, type II but diabetes mellitus, benign prostatic hyperplasia,
history of aortic stenosis status post TAVR, history of bladder cancer status post BCG. These medical issues were stable during his hospitalization. Medications were continued as able.
Patient was seen in consultation by physical therapy, Occupational Therapy, physiatry. They recommended acute rehab and the patient has been accepted to [facility]. He is stable for discharge there at this time. If there are any questions
regarding this dictation or his hospital stay, please not hesitate to call. Our office number is [phone].
Important imaging findings :
HEAD CT IMPRESSION:
No acute intracranial abnormalities.
Findings again seen compatible with diffuse cortical atrophy with nonspecific white matter changes as described above.
BRAIN MRI IMPRESSION: There are multiple scattered small foci of acute to subacute infarction in the left hemisphere, in the distribution of the left MCA, as described above.
In the right paramedian parietal lobe, there is also a 2 mm punctate focus of acute to subacute infarction.
Moderate diffuse atrophy. Moderate leukomalacia, predominantly periventricular.
NECK MRA IMPRESSION: Examination is limited by moderate motion artifact.
There is motion artifact involving the proximal left internal and external carotid arteries. However, no convincing evidence for a focal greater than 50% diameter reduction, with no evidence for hemodynamically significant stenosis.
No significant narrowing of the right carotid bulb or proximal right internal carotid artery.
Normal appearance of codominant vertebral arteries. Normal appearance of the basilar artery.
US IMPRESSION: Minimal carotid bulb plaque on each side, measurements suggestive of less than 50% stenosis on each side as per modified Society of Radiologists in Ultrasound consensus criteria (IAC carotid criteria white paper, 2020).
EEG CLINICAL CORRELATION:
Subtle left temporal lobe slowing at T5 may be due to structural lesion in this area, not specific as to etiology but can be caused by ischemic stroke to the area. No seizures or interictal epileptiform discharges seen.
Discharge Plan
-
Patient Disposition: Acute Rehab Facility
Discharge Diagnosis/Procedures: Acute stroke presenting with expressive and receptive aphasia and confusion, chronic diastolic congestive heart failure without exacerbation, permanent atrial fibrillation, essential hypertension, hyperlipidemia, type
2 diabetes mellitus, benign prostatic hyperplasia, history of aortic stenosis status post TAVR, history of bladder cancer status post BCG
Condition: Good
Diet: Low Sodium and Diabetic, Carb Controlled
Activity: As tolerated
Driving Restrictions: No driving
Bathing Restrictions: None
Referrals:
Brendon Velazquez MD [Active] - in four to six weeks
Roosevelt Huynh MD [Family Provider] - in less than 1 week
Prescriptions:
New
amlodipine 5 mg Tablet
5 mg PO BID Qty: 0 0RF
aspirin 81 mg Tablet,Delayed Release (Dr/Ec)
81 mg PO DAILY Qty: 0 0RF
Rx Instructions:
take through 10/01/23 then stop
ezetimibe 10 mg Tablet
10 mg PO HS Qty: 0 0RF
Continued
multivitamin Tablet
1 tab PO DAILY
furosemide [Lasix] 40 mg Tablet
20 mg PO DAILY
famotidine 20 mg Tablet
20 mg PO DAILY@0100
ascorbic acid (vitamin C) [Vitamin C] 500 mg Tablet
500 mg PO DAILY
tamsulosin 0.4 mg Capsule
0.4 mg PO QPM
ferrous sulfate [iron] 325 mg (65 mg iron) Tablet
325 mg PO DAILYPRN PRN (Reason: supplement)
melatonin 5 mg Tablet
5 mg PO DAILY@0100
L.acidophilus-Bifido.longum [Probiotic Pearls] 15 mg (1 billion cell) Capsule,Delayed Release(Dr/Ec)
1 cap PO DAILY@0100
Entresto 97-103 mg Tablet
1 tab PO DAILY@0100
Gemtesa 75 mg Tablet
75 mg PO DAILY
Prevagen
1 tab PO DAILY
Super Q10
100 mg PO DAILY
docosahexaenoic acid-epa
1 tab PO DAILY
Patient Comments:
09/11/2023, 2500 mg, 900 mg EPA, 600 mg DHA.
Neuropathy Vitamin
1 tab PO DAILY
carvedilol 6.25 mg tablet
6.25 mg PO BID
Xarelto 20 mg tablet
20 mg PO QPM
latanoprost 0.005 % Drops
1 drp RIGHT EYE HS
Visine 0.05 % Drops
1 drp BOTH EYES DAILYPRN PRN (Reason: dry eyes)
acetaminophen 650 mg Tablet Extended Release
650 mg PO TID
Lucentis 0.5 mg/0.05 mL Syringe
0 mg INTRAVITREAL Q10W
Patient Comments:
09/11/2023, pt. due for next dose tomorrow (09/12/2023) per spouse.
Entresto 49-51 mg Tablet
1 tab PO DAILY
Discontinued
amlodipine 5 mg Tablet
5 mg PO DAILY@0100
Discharge Orders:
Discharge Patient (As Directed); Ordered 09/15/23
Ordered By: Edilia Rios
Discharge Date and Time
Print Language: PASHTO
[2023-09-15 16:42] LABS: Glucose - Point of Care 245 mg/dl (70-99)
[2023-09-15] MEDS: FLOMAX 0.400000000000000022 MG PO (17:05)
[2023-09-15] MEDS: XARELTO 20 MG PO (17:05)
[2023-09-15] MEDS: NOVOLOG FLEXPEN-LOW RESISTANCE 2 UNITS SC (17:05)
== END 2023-09-15 18:15 | DRG 65 ==
LOC: 3 WEST ACU 13:06
PROVIDERS: Physician Assistant; Student in an Organized Health Care Education/Training Program; ADMITTING PHYSICIAN Internal Medicine; CONSULT PHYSICIAN Student in an Organized Health Care Education/Training Program; EMERGENCY PHYSICIAN Emergency Medicine; FAMILY PHYSICIAN Family Medicine
DX: I63.512 Cerebral infarction due to unspecified occlusion or stenosis of left middle cerebral artery (principal); I48.21 Permanent atrial fibrillation; I50.32 Chronic diastolic (congestive) heart failure; L03.113 Cellulitis of right upper limb; Z87.891 Personal history of nicotine dependence; E11.41 Type 2 diabetes mellitus with diabetic mononeuropathy; N40.1 Benign prostatic hyperplasia with lower urinary tract symptoms; Z85.51 Personal history of malignant neoplasm of bladder; Z95.2 Presence of prosthetic heart valve; E11.65 Type 2 diabetes mellitus with hyperglycemia; I11.0 Hypertensive heart disease with heart failure; G57.93 Unspecified mononeuropathy of bilateral lower limbs; F02.80 Dementia in other diseases classified elsewhere, unspecified severity, without behavioral disturbance, psychotic disturbance, mood disturbance, and anxiety
CPT/HCPCS: 70450; 70544; 70548; 70551; 80048; 80053; 80061; 81003; 82607; 82728; 82746; 82962; 83036; 83735; 84443; 85025; 85027; 85610; 85730; 92523; 92610; 93306; 93880; 95816; 97116; 97163; 97167; 97530; 97535; 99285; A9585

== ENCOUNTER 2023-10-16 09:24 | Emergency (ER) | payer MEDICARE, BC, SELFPAY ==
[2023-10-16 09:26] VITALS: BP 149/102
[2023-10-16 09:47] VITALS: BMI 31.3
[2023-10-16 09:54] VITALS: BP 127/91
[2023-10-16 10:00] VITALS: BP 137/75
--- NOTE | 2023-10-16 10:03 | ED.GENMED ---
History of Present Illness
General
Chief Complaint: Breathing Problem
Time Seen by Provider: 10/16/23 09:44
Travel History
Have you had any contact with someone who has COVID-19?: No
Do you have any symptoms of coronavirus? Fever > 100 degrees, chills, cough, shortness of breath, sore throat, loss of taste or smell, muscle aches, or headache?: No
History of Present Illness
History of Present Illness:
88-year-old male with history of atrial fibrillation, hypertension, hyperlipidemia, type 2 diabetes, aortic stenosis status post TAVR, bladder cancer status post BCG, and chronic HFpEF presents to the emergency department for evaluation of
persistent cough and chest congestion for the past 2 weeks. Has been taking Augmentin and prednisone for the past week and a half without improvement. Denies any productive sputum with coughing. Denies any dyspnea on exertion or leg swelling.
Was recently admitted to this hospital at the end of August due to an acute CVA and discharged to outpatient rehab for several weeks. Denies any fevers or night sweats. Significant other did have similar URI symptoms at the same time of the onset
of patient's symptoms however her symptoms have resolved without treatment
Past History
Past History
ED Past Medical History: Other (Cardiomyopathy, paroxysmal atrial fibrillation anticoagulation, right eye retinal problem,)
Social History
Tobacco: Former smoker
Alcohol: Occasional
Family History
Family History: Other (Atrial fibrillation)
Review of Systems
Review of Systems
Allergies reviewed?: Yes
All Other Systems: ROS reviewed and negative except as documented in HPI and ROS
Phy Exam
Physical Exam
Physical Exam:
GEN: Well appearing, NAD, WDWN
HEENT: Oral mucosa moist, no scleral icterus
Cardiac: Irregular rhythm, controlled rate, no murmurs
Lung: No respiratory distress, no tachypnea, inspiratory and expiratory rhonchi heard throughout all lung [place] likely transmitted upper airway sounds
MSK: No gross deformity or injuries, no lower extremity edema
Skin: Good color, no pallor or jaundice, no rashes
Neuro: AO x3, moves all extremities freely
Psych: Calm, cooperative
Scores
Heart Failure Risk
Heart Failure Risk Score: Not Applicable
Course
Orders/Labs/Results
Orders:
Orders
10/16/23 10:01
EKG [Electrocardiogram (*1)] Urgent
Reason for Study: Shortness of Breath
CR Chest - 2 Views Urgent
Comment:
Reason For Exam: cough, SOB
10/16/23 10:03
EKG- Treatment ONCE
10/16/23 10:05
Complete Blood Count/With Diff Urgent
Comprehensive Metabolic Panel Urgent
NT-proBNP Urgent
Troponin I Urgent
10/16/23 10:25
Ipratropium/Albuterol Sulfate [Duoneb] 3 ml INH R NOW STA
Abnormal Lab Results
10/16/23
10:05
RBC 4.44 L 10^6/uL
(4.70-6.10)
MCH 32.9 H pg
(27.0-31.0)
Abs Immat Gran (auto) 0.1 H 10^3/uL
(0-0.05)
Absolute Monos (auto) 0.7 H 10^3/uL
(0.1-0.6)
Immature Gran % 0.7 H %
(0-0.5)
Monocytes % 10.0 H %
(1.7-9.3)
Glucose 153 H mg/dl
(70-99)
10/16/23 10:05
10/16/23 10:05
Vital Signs
Initial and Last Documented VS:
Initial Vital Signs
Temp Pulse Resp BP Pulse Ox
97.8 F 86 20 149/102 98
10/16/23 09:26 10/16/23 09:26 10/16/23 09:26 10/16/23 09:26 10/16/23 09:26
Last Documented Vital Signs
Temp Pulse Resp BP Pulse Ox
97.8 F 72 15 136/83 99
10/16/23 09:26 10/16/23 12:00 10/16/23 09:54 10/16/23 12:00 10/16/23 12:00
MDM/Problems Addressed
MDM/Problems Addressed:
88-year-old male presents with persistent coughing and rhonchorous breath sounds. Chest x-ray independently interpreted by me as negative for acute cardiopulmonary disease or infiltrate. Labs are reassuring and he has no hypoxia. There was some
improvement in rhonchi after nebulizer treatment. Likely persistent viral bronchitis given the lack of improvement after antibiotics and steroids. Recommend mucolytic use and bronchodilators
*Critical Care Note
Total Time (30-74mins, 75-104mins- exclusive of procedures): Not Applicable
ED Attending Note
-
Portions of this chart may have been created with voice recognition software.� Occasional wrong word or��sound alike� substitutions may have occurred due to the inherent limitations of voice recognition software.
Discharge Plan
Departure
Patient Disposition: Home (Routine Discharge)
Date of Disposition: 10/16/23
Time of Disposition: 11:33
Patient with high blood pressure during this ER visit?: No
Discharge Problem:
Bronchitis
Instructions: Acute Bronchitis, Adult (DC)
Prescriptions:
New
(DME) Flexichamber Spacer
See Rx Instructions .Route Qty: 1 0RF
Rx Instructions:
As directed
No Action
multivitamin Tablet
1 tab PO DAILY
furosemide [Lasix] 40 mg Tablet
20 mg PO DAILY
famotidine 20 mg Tablet
20 mg PO DAILY@0100
ascorbic acid (vitamin C) [Vitamin C] 500 mg Tablet
500 mg PO DAILY
tamsulosin 0.4 mg Capsule
0.4 mg PO QPM
ferrous sulfate [iron] 325 mg (65 mg iron) Tablet
325 mg PO DAILYPRN PRN (Reason: supplement)
melatonin 5 mg Tablet
5 mg PO DAILY@0100
L.acidophilus-Bifido.longum [Probiotic Pearls] 15 mg (1 billion cell) Capsule,Delayed Release(Dr/Ec)
1 cap PO DAILY@0100
Entresto 97-103 mg Tablet
1 tab PO DAILY@0100
Gemtesa 75 mg Tablet
75 mg PO DAILY
Prevagen
1 tab PO DAILY
Super Q10
100 mg PO DAILY
docosahexaenoic acid-epa
1 tab PO DAILY
Patient Comments:
09/11/2023, 2500 mg, 900 mg EPA, 600 mg DHA.
Neuropathy Vitamin
1 tab PO DAILY
carvedilol 6.25 mg tablet
6.25 mg PO BID
Xarelto 20 mg tablet
20 mg PO QPM
latanoprost 0.005 % Drops
1 drp RIGHT EYE HS
Visine 0.05 % Drops
1 drp BOTH EYES DAILYPRN PRN (Reason: dry eyes)
acetaminophen 650 mg Tablet Extended Release
650 mg PO TID
Lucentis 0.5 mg/0.05 mL Syringe
0 mg INTRAVITREAL Q10W
Patient Comments:
09/11/2023, pt. due for next dose tomorrow (09/12/2023) per spouse.
Entresto 49-51 mg Tablet
1 tab PO DAILY
amlodipine 5 mg Tablet
5 mg PO BID Qty: 0 0RF
aspirin 81 mg Tablet,Delayed Release (Dr/Ec)
81 mg PO DAILY Qty: 0 0RF
Rx Instructions:
take through 10/01/23 then stop
ezetimibe 10 mg Tablet
10 mg PO HS Qty: 0 0RF
albuterol 90 mcg/actuation Aerosol
90 mcg INHALATION Q4HPRN PRN (Reason: as directed)
guaifenesin [Mucinex] 600 mg Tablet Extended Release 12hr
600 mg PO BID
Referrals:
Roosevelt Huynh MD [Family Provider] -
Interventions
Interventions:
*Risk Screen - Suicide Last Done: 10/16/23 09:26
*General Assessment Last Done: 10/16/23 09:26
*Neglect/Abuse Screening Last Done: 10/16/23 09:26
ED- Fall Risk Assessment Last Done: 10/16/23 09:47
*ED COVID-19 Vaccine History Last Done: 10/16/23 09:26
ED- Cardiac Assessment Last Done: 10/16/23 10:15
ED- Pulmonary Assessment Last Done: 10/16/23 10:15
Discharge Date and Time
Print Language: CZECH
[2023-10-16 10:10] VITALS: BP 129/79
[2023-10-16 10:17] LABS: % Basophils 0.4 % (0-2); % Immature Granulocytes 0.7 % (0-0.5); % Lymphocytes 22.8 % (20.5-51.1); % Neutrophils 62.1 % (42.2-75.2); Absolute Eosinophils 0.3 10^3/uL (0-0.7); Absolute Immature Granulocytes 0.1 10^3/uL (0-0.05); Absolute Lymphocytes 1.7 10^3/uL (1.2-3.4); Absolute Monocytes 0.7 10^3/uL (0.1-0.6); Absolute Neutrophils 4.6 10^3/uL (1.4-6.5); Hematocrit 41.4 % (39.0-52.0); Hemoglobin 14.6 g/dL (13.0-18.0); Mean Corp Hgb Conc. 35.3 g/dL (33.0-37.0); Mean Corpuscular Hgb 32.9 pg (27.0-31.0); Mean Corpuscular Volume 93.2 fL (80.0-94.0); Mean Platelet Volume 10.1 fL (7.4-10.4); Nucleated Red Blood Cells % 0 % (-); Platelet Count 136 10^3/uL (130-400); Red Blood Cell Count 4.44 10^6/uL (4.70-6.10); Red Cell Dist. Width 14.3 % (11.5-14.5); White Blood Cell Count 7.4 10^3/uL (4.8-10.8)
[2023-10-16 10:26] LABS: ALT (SGPT) 19 U/L (0-50); AST (SGOT) 18 U/L (17-59); Albumin 3.6 g/dl (3.5-5.0); Alkaline Phosphatase 87 U/L (38-126); Blood Urea Nitrogen 20 mg/dl (9-20); Calcium 9.1 mg/dl (8.4-10.2); Carbon Dioxide 28 mmol/L (22-30); Chloride 105 mmol/L (98-107); Estimated Creatinine Clearance 76 ml/min; Glucose 153 mg/dl (70-99); Sodium 140 mmol/L (135-145); Total Bilirubin 0.5 mg/dl (0.2-1.3); Total Protein 6.3 g/dl (6.3-8.2); eGFR > 60.00
[2023-10-16 10:37] LABS: NT-proBNP 481 pg/ml; Troponin I < 0.012 ng/ml
[2023-10-16] MEDS: DUONEB 3 ML INH (10:55)
[2023-10-16 11:00] VITALS: BP 127/86
[2023-10-16 12:00] VITALS: BP 136/83
== END 2023-10-16 12:10 | disposition home or self-care (01) ==
LOC: EMR 09:24
PROVIDERS: Physician Assistant; EMERGENCY PHYSICIAN Emergency Medicine; FAMILY PHYSICIAN Family Medicine
DX: J40 Bronchitis, not specified as acute or chronic (principal); I48.91 Unspecified atrial fibrillation; E78.00 Pure hypercholesterolemia, unspecified; E11.9 Type 2 diabetes mellitus without complications; I11.0 Hypertensive heart disease with heart failure; I50.32 Chronic diastolic (congestive) heart failure; I35.0 Nonrheumatic aortic (valve) stenosis; Z85.51 Personal history of malignant neoplasm of bladder; Z86.73 Personal history of transient ischemic attack (TIA), and cerebral infarction without residual deficits; Z87.891 Personal history of nicotine dependence; Z95.2 Presence of prosthetic heart valve
CPT/HCPCS: 99283; 94640; 71046; 80053; 83880; 84484; 85025; 93005